=== PATIENT | female | born 1955 | race Caucasian/White ===

== ENCOUNTER 2018-12-11 16:03 | Inpatient (IN) | payer OTHER ==
[~2018-12-11] VITALS: Ht 152.4 cm; Wt 68.0 kg
[2018-12-11 16:30] VITALS: BP 118/79
[2018-12-11 17:17] LABS: URINE BILIRUBIN NEGATIVE (Negative); URINE BLOOD 1+ (Negative); URINE CLARITY CLEAR; URINE COLOR YELLOW; URINE GLUCOSE-RANDOM 3+ (Negative); URINE KETONES 1+ (Negative); URINE LEUKOCYTES-REFLEX 1+ (Negative); URINE NITRITE-REFLEX NEGATIVE (Negative); URINE PROTEIN 1+ (Negative); URINE UROBILINOGEN 0.2 E.U./dl (0.2-1.0)
[2018-12-11 17:24] LABS: BACTERIA-REFLEX >30 Many /HPF (None Seen); SQUAMOUS >10 Many /LPF (0-3)
[2018-12-11 17:25] LABS: CASTS None Seen /LPF (None Seen); CRYSTALS None Seen /LPF (None Seen); MUCUS None Seen strn/LPF (None Seen); URINE RBC 0-2 Rare /HPF (0-2)
[2018-12-11 17:41] LABS: ABSOLUTE BASOPHILS 0.1 thou/uL (0.0-0.2); ABSOLUTE EOSINOPHILS 0.1 thou/uL (0.0-0.7); ABSOLUTE LYMPHOCYTES 4.6 thou/uL (0.8-5.3); ABSOLUTE MONOCYTES 1.6 thou/uL (0.0-1.2); ABSOLUTE NEUTROPHILS 11.8 thou/uL (1.6-8.1); BASOPHILS 0.6 %; EOSINOPHILS 0.6 %; HEMATOCRIT 41.6 % (37.0-47.0); HEMOGLOBIN 14.9 gm/dL (12.0-15.0); LYMPHOCYTES 25.2 %; MCHC 35.8 g/dL (28.0-37.0); MCV 86.6 fL (80.0-100.0); MONOCYTES 8.7 %; MPV 7.7 fl. (7.2-11.1); NUCLEATED RBCS 0 /100WBC; PLATELET COUNT* 353 thou/uL (150-400); POLYS 64.9 %; WBC 18.2 thou/uL (4.0-11.0)
[2018-12-11 17:54] LABS: ALBUMIN 3.6 g/dL (3.4-5.0); TOTAL BILIRUBIN 0.8 mg/dL (<0.1-1.0); TOTAL PROTEIN 7.7 g/dL (6.4-8.2)
[2018-12-11 21:10] VITALS: BP 141/75
[2018-12-11 22:00] VITALS: BP 99/62
[2018-12-11 22:26] LABS: ANION GAP 17 mmol/L (7-16); BUN 36 mg/dL (7-18); CALCIUM 9.3 mg/dL (8.5-10.1); CHLORIDE 92 mmol/L (98-107); CO2 21 mmol/L (21-32); CREATININE 0.9 mg/dL (0.6-1.3); POTASSIUM 3.4 mmol/L (3.5-5.1); SODIUM 130 mmol/L (136-145)
[2018-12-11 22:28] LABS: GLUCOSE 545 mg/dL (70-99)
[2018-12-11 22:32] LABS: TROPONIN-I LEVEL <0.06 ng/mL (<0.06)
[2018-12-12] VITALS (7 sets, daily range): BP systolic 106–122; BP diastolic 55–65
[2018-12-12] MEDS ORDERED: HUMALOG100 UNIT/1 SUBQ (02:39)
[2018-12-12] MEDS ORDERED: LANTUS100 UNIT/M SUBQ (02:41)
[2018-12-12] MEDS ORDERED: PRAVACHOL20 MG PO (02:42)
[2018-12-12] MEDS ORDERED: SPIRONOLACTONE25 M1 PO (02:43)
[2018-12-12] MEDS ORDERED: TRULICITY1.5 MG/0.5 SUBQ (02:49)
[2018-12-12] MEDS ORDERED: EFFEXOR XR37.5 MG PO (02:50)
[2018-12-12] MEDS ORDERED: XANAX 0.25 MG0.25 MG PO (07:02)
[2018-12-12 09:29] LABS: APTT 25.8 Seconds (25.0-31.3)
[2018-12-12 12:26] LABS: CSF GLUCOSE 253 mg/dl (40-70); CSF PROTEIN 237.9 mg/dl (15-45)
--- NOTE | 2018-12-12 12:33 | EKG ---
[place] [address] ELECTROCARDIOGRAM REPORT Name: DYADAY HILLS Room: [address] ADM IN .R.#: [id number] Admission: 12/11/18 Attend Phys: James Lawson Discharge: Date of : 59 Report #: [id number] THIS REPORT FOR: //name// [facility] Test Date: 2018-12-12 Test Time: 08:05:36 Pat Name: DAYDAY HILLS Department: Room: [address] Gender: F Final Inspector Shuttle: : 1955 Requested By: Jose Edwards Order Number: [id number] Mercedes MD: Douglas Zimmerman Measurements Intervals [place] Rate: 99 P: 63 AR: 182 QRS: -4 QRSD: 82 T: 88 QT: 393 QTc: 505 Interpretive Statements Sinus rhythm Borderline T wave abnormalities Possible inferior scar Prolonged QT interval No previous ECG available for comparison Electronically Signed On 12-12-2018 12:33:34 CDT by Douglas Zimmerman [email or web address] <ELECTRONICALLY SIGNED> By: Douglas Zimmerman MD, MERGED WITH [facility] 12/12/18 1233 [id number] Douglas Zimmerman MD, FAC /EPI
[2018-12-12 13:08] LABS: CSF CLARITY CLEAR; CSF COLOR COLORLESS; CSF RBC 5 /mm3; CSF WBC 1 /mm3 (0-10); VOLUME 11 ml
[2018-12-12 14:00] LABS: CALCIUM 9.4 mg/dL (8.5-10.1); CREATININE 0.8 mg/dL (0.6-1.3); MAGNESIUM 2.6 mg/dL (1.8-2.4); POTASSIUM 3.9 mmol/L (3.5-5.1)
[2018-12-13 00:08] VITALS: BP 118/52
[2018-12-13 04:00] VITALS: BP 126/66
[2018-12-13 08:00] VITALS: BP 127/71
[2018-12-13 11:06] LABS: CSF LDH 23 IU/L (())
[2018-12-13 15:54] VITALS: BP 110/59
[2018-12-13 20:00] VITALS: BP 123/66
[2018-12-14] VITALS: BP 121/68
[2018-12-14 08:00] VITALS: BP 133/73
[2018-12-14 10:37] VITALS: BP 133/73
[2018-12-14] MEDS ORDERED: FIBERCON625 M1 PO (10:56)
[2018-12-14 12:00] VITALS: BP 117/67; BP 141/69
[2018-12-14 14:07] LABS: CSF CHLORIDE 122 mmol/L (120-132); CSF TOTAL PROTEIN 210.6 mg/dL (0.0-44.0)
[2018-12-14 19:35] VITALS: BP 123/70
[2018-12-15 04:00] VITALS: BP 129/71
[2018-12-15 08:00] VITALS: BP 111/62
[2018-12-15 14:09] LABS: CSF VDRL Non Reactive (Non Rea:<1:1)
[2018-12-15] MEDS ORDERED: ENOXAPARIN40 MG/0.1 SUBQ (15:06)
[2018-12-15] MEDS ORDERED: CEFPODOXIME PR200 M1 PO (15:22)
[2018-12-15 15:27] VITALS: BP 133/73
[2018-12-15 16:00] VITALS: BP 111/66
[2018-12-15 16:59] VITALS: BP 133/73
[2018-12-15] MEDS ORDERED: CYMBALTA30 MG PO (17:51)
[2018-12-15] MEDS ORDERED: NEURONTIN 300300 M1 PO (17:54)
[2018-12-15 19:45] VITALS: BP 155/76
[2018-12-16 04:00] VITALS: BP 151/72
[2018-12-16 07:30] VITALS: BP 127/64
[2018-12-16] MEDS ORDERED: CYMBALTA30 MG PO (11:30)
[2018-12-16] MEDS ORDERED: LEVAQUIN 500 M500 M2 PO (11:30)
[2018-12-16] MEDS ORDERED: HUMALOG100 UNIT/1 SUBQ (11:30)
[2018-12-16] MEDS ORDERED: OXYCODONE HCL 55 MG PO (11:30)
[2018-12-16] MEDS ORDERED: COLACE 100 MG100 MG PO (11:30)
[2018-12-16 13:59] VITALS: BP 133/73
[2018-12-17 13:07] LABS: CSF ALBUMIN 160 mg/dL (11-48); CSF IGG INDEX 0.7 (0.0-0.7); CSF IgG 19.4 mg/dL (0.0-8.6); CSF/SERUM ALBUMIN INDEX 42 (0-8)
[2018-12-17 15:10] LABS: CSF ALBUMIN 58.3 % (56.8-76.4); CSF ALPHA 1 5.3 % (1.1-6.6); CSF ALPHA 2 10.7 % (3.0-12.6); CSF BETA 16.6 % (7.3-17.9); CSF GAMMA 7.7 % (3.0-13.0); CSF PRE-ALBUMIN 1.5 % (2.2-7.1)
== END 2018-12-16 16:48 | DRG 74 ==
LOC: M.ERS 16:03 → M.TBA-ER 18:39 → M.2W 18:39
PROVIDERS: Personal Emergency Response Attendant; ADMIT Internal Medicine
DX: G61.81 Chronic inflammatory demyelinating polyneuritis (principal); N39.0 Urinary tract infection, site not specified; E87.1 Hypo-osmolality and hyponatremia; M79.7 Fibromyalgia; I45.81 Long QT syndrome; E87.6 Hypokalemia; E11.9 Type 2 diabetes mellitus without complications; Z88.8 Allergy status to other drugs, medicaments and biological substances; Z91.048 Other nonmedicinal substance allergy status; Z79.84 Long term (current) use of oral hypoglycemic drugs

== ENCOUNTER 2018-12-15 15:07 | Inpatient (IN) | payer OTHER ==
[~2018-12-15] VITALS: Ht 154.9 cm; Wt 72.3 kg
[~2018-12-15 15:07] MED LIST: EFFEXOR XR37.5 MG PO; ENOXAPARIN40 MG/0.1 SUBQ; FIBERCON625 M1 PO; HUMALOG100 UNIT/1 SUBQ; LANTUS100 UNIT/M SUBQ; PRAVACHOL20 MG PO; SPIRONOLACTONE25 M1 PO; TRULICITY1.5 MG/0.5 SUBQ; XANAX 0.25 MG0.25 MG PO
[2018-12-15] MEDS ORDERED: CEFPODOXIME PR200 M1 PO (15:22)
[2018-12-15] MEDS ORDERED: CYMBALTA30 MG PO (17:51)
[2018-12-15] MEDS ORDERED: NEURONTIN 300300 M1 PO (17:54)
[2018-12-16] MEDS ORDERED: COLACE 100 MG100 MG PO (11:30)
[2018-12-16] MEDS ORDERED: HUMALOG100 UNIT/1 SUBQ (11:30)
[2018-12-16] MEDS ORDERED: CYMBALTA30 MG PO (11:30)
[2018-12-16] MEDS ORDERED: LEVAQUIN 500 M500 M2 PO (11:30)
[2018-12-16] MEDS ORDERED: OXYCODONE HCL 55 MG PO (11:30)
--- NOTE | 2018-12-16 17:43 | NUR ---
ASSUMMED CARE UPON ADMISSION, PT ALERT AND ORIENTED, PT ORIENTED TO REHAB ROUTINE, ASSESSMENT COMPLETE, WILL CONTINUE TO MONITOR.
[2018-12-16 18:33] LABS: HEMATOCRIT 40.5 % (37.0-47.0); HEMOGLOBIN 14.2 gm/dL (12.0-15.0); MCH 30.6 pg (26.0-34.0); MCV 87.5 fL (80.0-100.0); MPV 7.5 fl. (7.2-11.1); RBC 4.63 mil/uL (4.20-5.00); RDW-CV 13.3 % (10.5-14.5); WBC 11.6 thou/uL (4.0-11.0)
[2018-12-16 18:43] LABS: CALCIUM 9.4 mg/dL (8.5-10.1); CREATININE 0.7 mg/dL (0.6-1.3); POTASSIUM 3.4 mmol/L (3.5-5.1)
[2018-12-16 19:10] VITALS: BP 127/61
--- NOTE | 2018-12-16 20:45 | NUR ---
SITTING UP IN RECLINER WATCHING TV. DENIES DISCOMFORT. CALL LIGHT WITHIN REACH. TOOK MEDICATIONS WHOLE WITH WATER.
[2018-12-17 03:22] LABS: URINE BILIRUBIN NEGATIVE (Negative); URINE BLOOD NEGATIVE (Negative); URINE CLARITY CLEAR; URINE COLOR YELLOW; URINE GLUCOSE-RANDOM TRACE (Negative); URINE KETONES NEGATIVE (Negative); URINE LEUKOCYTES-REFLEX NEGATIVE (Negative); URINE NITRITE-REFLEX NEGATIVE (Negative); URINE PROTEIN 1+ (Negative); URINE UROBILINOGEN 0.2 E.U./dl (0.2-1.0)
--- NOTE | 2018-12-17 05:41 | NUR ---
UP X ONE DURING THE NIGHT TO THE BEDSIDE COMMODE TO VOID. HOURLY ROUNDING IN PROGRESS.
[2018-12-17 07:15] VITALS: BP 96/58
--- NOTE | 2018-12-17 11:47 | NUR ---
Nutrition: Pt admitted to Rehab with [facility]. She stated she has been "sick" since September with nausea, wt loss, poor appetite. Loss of 110# in 1.5 yrs. She stated she feels like it is her mind, not her body, that is causing the loss of appetite. She has been drinking Ensure at home and agrees to them here as well. Albumin 3.6, BG 288. Wt: 150#. She also stated that the infusions are helping her appetite to increase again. She had questions over the CHO count on menus and ordering - all questions answered. She stated the food is good here and likes the option to order what she wants. She stated she is eating >50% of her meals now. Consider Mild risk at this time. RD will follow weekly for po intake, wt, labs.
--- NOTE | 2018-12-17 16:53 | NUR ---
SW met with pt to complete initial assessment, introduce self, and SW role on inpt rehab and to review team conference summary. Pt lives at home with her . Pt has a stair lift and a transport wheelchair and rolling walker. Pt has children and grandchildren who are her inspiration and motivation to meet goals on rehab. SW discussed reteam next Saturday to reassess pt length of stay. Pt in agreement with plan. SW to continue to follow to assist with safe dc planning.
--- NOTE | 2018-12-17 18:06 | NUR ---
ASSUMMED CARE OF PT AT 0730, PT ALERT AND ORIENTED, PT TRANSFERS SLOWLY WITH GB WALKER, NEEDS SLIGHT HELP FROM SIT TO STAND, TAKING FOOD AND FLUIDS WELL, PT BLOOD SUGARS ELEVATED THIS SHIFT, PT DOES HAVE INSULIN DELEVERY DEVICE (VGO) AND SHE GIVES HERSELF LISPRO INSULIN PER HER BLOOD SUGAR, PT CONCERNED SUGARS ELEVATED AND THINKING DEVICE NOT LOADED CORRECTLY,PT CHANGED DEVICE THIS PM AND DINNER BLOOD SUGAR IMPROVED, ADDITIONAL INSULIN GIVEN PER SLIDING SCALE PER NURSE DUE TO HIGH BLOOD SUGARS AT BREAKFAST AND LUNCH, PT REFUSED ADDITIONAL INSULIN AT DINNER, PT DID COMPLAIN OF LOW BACK PAIN X 1 THIS SHIFT, MEDICATED PER ORDER, PARTICIPATED IN ALL THERAPIES, HOURLY ROUNDING COMPLETED, ASSESSMENT COMPLETE, WILL CONTINUE TO MONITOR.
[2018-12-17 19:23] VITALS: BP 124/68
--- NOTE | 2018-12-18 05:03 | NUR ---
ASSUMED PT CARE AT 1930. PT ALERT AND ORIENTED X4, POLITE AND COOPERATIVE WITH CARES. PT SITTING UP IN RECLINER WATCHING TELEVISION AT SHIFT CHANGE. PT UP TO BEDSIDE COMMODE WITH GAIT BELT, WALKER AND MIN ASSIST TO STAND X3 TO VOID. PER PT HER INSULIN DELIVERY DEVICE IS WORKING WELL AFTER HAVING BEEN CHANGED OUT. PT DECLINED S/S INSULIN AT HS. PT SLEPT WELL OVERNIGHT. TYLENOL AND XANAX AT HS PER PT REQUEST. HOURLY ROUNDING IN PROGRESS, WILL CONTINUE TO MONITOR.
[2018-12-18 08:00] VITALS: BP 114/60
[2018-12-18 20:00] VITALS: BP 126/65
--- NOTE | 2018-12-19 05:07 | NUR ---
ASSUMED PT CARE AT 1930. PT ALERT AND ORIENTED X4, POLITE AND COOPERATIVE WITH CARES. PT SITTING UP IN RECLINER AT SHIFT CHANGE WATCHING TELEVISION. PT UP WITH ONE, MIN ASSIST, GAIT BELT AND WALKER TO BATHROOM X2 TO VOID. NEEDS EXTRA TIME. PT NEEDS ASSIST GETTING HER LEGS IN AND OUT OF BED. NO PAIN MEDICATIONS THIS SHIFT. PT HAS INSULIN DEVICE WHICH SHE OVERSEES, PT DECLINED S/S INSULIN. PT SLEPT WELL OVERNIGHT. CALL LIGHT AND FREQUENTLY USED ITEMS WITHIN REACH. HOURLY ROUNDING IN PROGRESS, WILL CONTINUE TO MONITOR.
[2018-12-19 07:30] VITALS: BP 130/64
--- NOTE | 2018-12-19 15:32 | NUR ---
PT HAS PARTICIPATED WITH THERAPIES AND IS ALERT AND OTIENTATED. PT AMBULATES WITH SLOW DELIBERATE GAIT WITH WALKER AND MIN ASSIST OF 1.PT CONTINENT OF BLADDER AND CALLS FOR ASSIST TO BATHROOM. PT HAS FAIR APPETITE AND HAS EATEN LUNCH IN DINNINGROOM.PT DENIES PAIN.
[2018-12-19 20:09] VITALS: BP 123/65
--- NOTE | 2018-12-20 00:34 | NUR ---
ASSUMED CARE AT 1930. PATIENT IN W/C FOR A WHILE IN DINING ROOM, WHEELED HER BACK TO HER ROOM. UP WITH SBA, GAIT BELT, WALKER. SLOW GAIT. NEEDS HELP WITH BOTH LEGS IN AND OUT OF BED. TAKES PILLS WHOLE WITH WATER. NO C/O PAIN. SHE DID NOT SELF ADMINISTER INSULIN FROM HER PUMP, I GAVE HOSPITAL INSULIN. SEE MAY. TURNS PER SELF. HOURLY ROUNDS CONTINUE. BED ALARM ON. CALL LITE IN REACH.
--- NOTE | 2018-12-20 05:48 | NUR ---
SLEPT MUCH OF THE NIGHT. VOIDED PER TOILET. NEEDS HELP GETTING BOTH LEGS INTO THE BED. NO C/O PAIN. HOURLY ROUNDS CONTINUE. BED ALARM ON. CALL LITE IN REACH.
[2018-12-20 07:49] VITALS: BP 107/56
[2018-12-20 19:40] VITALS: BP 148/64
--- NOTE | 2018-12-20 22:56 | NUR ---
ASSUMED CARE AT 1930. PATIENT RESTING IN BED. TAKES PILLS WHOLE WITH WATER. VOIDS PER TOILET AND DOES OWN CARES. USES GRABBER TO APPLY PULLUPS. TOOK MOM AT HS BECAUSE OF NO BM FOR A "COUPLE OF DAYS" AND WANTED PULLUPS IN CASE OF FECAL URGENCY. NEEDS HELP GETTING BOTH LEGS IN AND OUT OF BED, BUT ONCE STANDING CAN WALK SLOWLY AND DELIBERATELY WITH GAIT BELT AND WALKER. NO C/O PAIN, CAN TURN SELF USING ARMS AND SIDE RAILS. HOURLY ROUNDS CONTINUE. BED ALARM ON. CALL LITE IN REACH.
--- NOTE | 2018-12-21 05:08 | NUR ---
SLEPT MOST OF THE NIGHT. NO RESULTS FROM MOM. NO C/O PAIN. TURNS SELF. HOURLY ROUNDS CONTINUE. BED ALARM ON. CALL LITE IN REACH.
[2018-12-21 08:08] VITALS: BP 96/54
--- NOTE | 2018-12-21 17:07 | NUR ---
ASSUMMED CARE OF PT AT 0730, PT ALERT AND ORIENTED, TRANSFERS WITH SBA, GB WALKER, AMBULATED IN HALLWAY WITH SBA GB WALKER, GAIT SLOW BUT STEADY, PT DOES NEED OCCCASIONAL STEADYING WHEN ADJUSTING PANTS FOR TOILETING, PTY COMPLAINS OF CONSTIPATION, PT COMPLAINS OF RECTAL PRESSURE AND INABILITY TO EVACUATE BOWELS, FLEETS ENEMA GIVEN AND NURSE MANUALLY EXTRACTED A LARGE AMOUNT OF HARD STOOL, PT REQUESTING THAT ADDITIONAL MEDICATION BE ORDERED FOR HER BOWELS, INFORMED PT THAT WILL DISCUSS WITH PHYSICIAN WITH ROUNDS IN AM, DENIES PAIN, PT GIVE OWN LISPRO INSULIN VIA PUMP, PT UP IN CHAIR MOST OF SHIFT, DID BATH SITTING AT SINK, DRESSED WITH SBA AND SOME STEADYING, HOURLY ROUNDING COMPLETE, ASSESSMENT COMPLETE, WILL CONTINUE TO MONITOR.
[2018-12-21 20:00] VITALS: BP 116/68
--- NOTE | 2018-12-21 22:11 | NUR ---
ASSUMED CARE AT 1930. PATIENT RESTING IN BED. AT BEDSIDE. UP TO TOILET TO VOID. LATER VOIDING PER BSC THROUGH NIGHT. TRYING TO HELP MORE WITH CARES. WEARING BRIEF, INCONTINENT OF SMALL AMOUNT OF URINE, BUT CONTAINED IN PULLUP. SKIN CARE GIVEN. UP WITH GAIT BELT, WALKER, STEADYING ASSIST, AND CUEING ESPECIALLY WITH IV TUBING PLACEMENT. IVF INFUSING TO RT WRIST. PATIENT VERY ANXIOUS ABOUT THIS IV, REASSURANCE GIVEN. DRESSING TO PEG C/D/I. PEG FLUSHES WELL, MEDS GIVEN PER PEG. ABD BINDER OVER PEG AND TUBING, PATIENT STATES "IT HELPS" SHE STATES AREA IS TENDER. ASSISTED WITH TURNS. NO C/O PAIN. HOURLY ROUNDS CONTINUE. BED ALARM ON. CALL LITE IN REACH.
--- NOTE | 2018-12-22 06:08 | NUR ---
SLEPT FROM 2300 TO 0555. TURNS SELF. VOIDED PER TOILET. NEEDS HELP WITH BOTH LEGS IN AND OUT OF BED. SLOW DELIBERATE STEPS WITH GAIT BELT, WALKER. NO C/O PAIN. HOURLY ROUNDS CONTINUE. BED ALARM ON. CALL LITE IN REACH.
[2018-12-22 07:46] VITALS: BP 81/49
--- NOTE | 2018-12-22 15:30 | NUR ---
ASSUMED CARE AT 0730. ALERT ORIENTED PLEASANT COOPERATIVE. HX OF JONNY CALLAWAY DX. TRANSFERS WITH SBA G BELT WALKER AND AMBULATES WITH SLOW GAIT. DENIES PAIN OR CONCERNS. PARTICIPATING IN THERAPIES THROUGHOUT THE DAY. PT. HAS AN INSULIN PUMP WHICH SHE REGULATES ACCORDING TO HER BLOOD SUGARS. FEEDS SELF AND TAKES MEDS WITHOUT DIFFICULTY. USES CALL LIGHT APPROPRIATELY FOR ASSIST. PROPELLS SELF IN W/C IN HER ROOM.
[2018-12-22 20:00] VITALS: BP 143/71
--- NOTE | 2018-12-23 05:20 | NUR ---
ASSUMED CARES AT 1920. ALERT AND ORIENTED. PLEASANT. DENIED ANY PAIN. C/O ITCHY BACK. DENIED ANY NEED FOR BENADRYL. SAYS HAS HAD THIS IN THE PAST. HAS INSULIN PUMP TO LLQ ABD. SELF ADMINISTERS OWN INSULIN DOSE. MIN ASSIST WITH GAIT BELT AND WALKER. UP TO BATHROOM X 3. DOES OWN CARES. SAYS THAT FEELS LIKE NEEDS TO HAVE BM BUT CAN'T. WEARING PULLUPS IN CASE OF STOOL ACCIDENT. PT SLEPT MOST OF THE NIGHT. CALL LIGHT IN REACH AND BED ALARM ON.
[2018-12-23 07:25] VITALS: BP 108/59
[2018-12-23 20:00] VITALS: BP 143/71
--- NOTE | 2018-12-24 05:07 | NUR ---
ASSUMED CARES AT 1920. ALERT AND ORIENTED. PLEASANT. DENIED ANY PAIN. C/O ITCHY BACK. LOTIONED BACK AND PRN BENADRYL ORDER OBTAINED. MIN ASSIST WITH GAIT BELT AND WALKER. UP TO BATHROOM X 3. SLEPT WELL AFTER MIDNIGHT. CALL LIGHT IN REACH AND BED ALARM ON.
[2018-12-24 07:54] VITALS: BP 123/63
--- NOTE | 2018-12-24 12:47 | NUR ---
JOSUE and Dr Gould met with pt to review team conference summary and plan for pt to remain on rehab unit one more week with team to reteam and possible for pt to dc after team conference Sunday 12/31. Pt was okay with plan but also wanted to make sure that she really would be ready in a week to dc home safely. SW to continue to follow to assist with safe dc planning.
--- NOTE | 2018-12-24 15:03 | NUR ---
AM ASSESSMENT AND VITAL SIGNS COMPLETED DOCUMENTED. PT HAS BEEN PLEASANT AND COOPERATIVE, WORKS HARD WITH ALL THERAPIES TO CONTINUE TO PROGRESS TOWARD DISCHARGE GOALS. PRN TYLENOL GIVEN FOR C/O BACK PAIN. PT IS AMBULATORY WITH A WALKER AND STAFF PRESENT. FALL PRECAUTIONS AND HOURLY ROUNDING CONTINUE.
[2018-12-24 20:00] VITALS: BP 137/68
[2018-12-25 04:12] LABS: HEMATOCRIT 33.7 % (37.0-47.0); HEMOGLOBIN 11.9 gm/dL (12.0-15.0); MCH 31.1 pg (26.0-34.0); MCHC 35.1 g/dL (28.0-37.0); MCV 88.7 fL (80.0-100.0); MPV 7.4 fl. (7.2-11.1); RBC 3.8 mil/uL (4.20-5.00); RDW-CV 14.1 % (10.5-14.5); WBC 15.8 thou/uL (4.0-11.0)
[2018-12-25 04:25] LABS: ALBUMIN 2.6 g/dL (3.4-5.0); CREATININE 0.5 mg/dL (0.6-1.3); POTASSIUM 3.3 mmol/L (3.5-5.1); TOTAL BILIRUBIN 0.5 mg/dL (<0.1-1.0); TOTAL PROTEIN 6.6 g/dL (6.4-8.2)
--- NOTE | 2018-12-25 06:30 | NUR ---
ASSUMED CARES AT 1920. ALERT AND ORIENTED. PLEASANT. DENIED ANY PAIN. PT CONTINUES WITH CONCERN OF BM. DISCUSSED OPTION OF SUPPOSITORY. PT OPEN TO TAKING BUT WANTS THIS DONE IN AM. MOD ASSIST WITH GAIT BELT AND WALKER. STILL WANTS ASSIST WITH BOTH LEGS INTO BED. UP TO BATHROOM. DOES OWN CARES. THIS AM BLOOD SUGAR AND K+ LOW. JUICE AND CRACKERS GIVEN AND K+ REPLACEMENT PROTOCOL INITIATED. PT SLEPT WELL OTHERWISE. CALL LIGHT IN REACH. BED ALARM ON.
[2018-12-25 07:38] VITALS: BP 95/52
--- NOTE | 2018-12-25 18:26 | NUR ---
PT HAS PARTICIPATED WITH THERAPIES AND CALLS FOR ASSIST NEEDED. PT AMBULATES WITH WALKER AND SBA WITH GAITBELT ON. PRN FOR BACK PAIN GIVEN THIS AFTERNOON WITH GOOD EFFECT. PT ASSISTED WITH MANUAL REMOVAL OF LARGE FORMED STOOL THIS AFTERNOON AFTER RECEIVING SUPPOSITORY,PT FEELS BETTER. PT REPORTS FEELING STOOL IN COLON BUT NOT BEING ABLE TO PUSH IT OUT ON OWN.PT REMAINS ALERT AND ORIENTATED.
[2018-12-25 19:51] VITALS: BP 102/57
--- NOTE | 2018-12-26 00:52 | NUR ---
ASSUMED CARE AT 1930. PATIENT SAT IN W/C UNTIL AROUND 2044. UP WITH SBA, GAIT BELT, WALKER. NEEDS HELP WITH GETTING BOTH LEGS INTO BED. MANAGES OWN INSULIN PUMP. DID NOT GIVE HERSELF ANY UNITS AT HS. UP JUST BEFORE MIDNIGHT, BLOOD SUGAR CHECKED, WAS 66. GIVEN 14 G CARBS IN APPLE JUICE, AND 22 G CARBS IN TWO PACKAGES OF RENU CRACKERS FOR A TOTAL OF 36 G CARBS. RETURNED TO SLEEP. NO C/O PAIN. HOURLY ROUNDS CONTINUE. BED ALARM ON. CALL LITE IN REACH.
--- NOTE | 2018-12-26 02:38 | NUR ---
USED CALL LITE TO ASK TO VOID. WHEN NURSE ARRIVED PATIENT THOUGHT SHE HAD ALREADY CALLED, BUT HAD NOT. THEN PATIENT ATTEMPTED TO RISE FROM SITTING POSIITON AND WALK TO TOILET. TOOK ABOUT TWO STEPS AND WAS UNSTEADY ENOUGH THAT THIS NURSE HAD HER GET BACK ON BED. BSC OBTAINED AND SHE USED THIS AT BEDSIDE WITH STAND PIVOT. PATIENT BLOOD SUGAR WAS 70 DESPITE EARLIER CARB INTAKE. AFTER FINISHING VOIDING/HYGIENE, GIVEN ONE ORANGE SHERBET AND APPLE JUICE WITH TWO PACKETS OF SUGAR IN AND SHE CONSUMED THEM. AFTER BEING UP A FEW MINUTES MENTATION CLEARED BUT SHE WAS STILL WEAK. CALL LITE IN REACH. BED ALARM ON. HOURLY ROUNDS CONTINUE.
--- NOTE | 2018-12-26 03:15 | NUR ---
LAB AWOKE PATIENT. PATIENT WAS STILL VERY SLEEPY, BUT AROUSABLE. BLOOD SUGAR RECHECKED (ONE HOUR AFTER CONSUMING LAST CARBS) AND WAS 145. ONCE AWAKE, SHE WAS MORE ALERT AND JOKING WITH STAFF.
--- NOTE | 2018-12-26 05:13 | NUR ---
SLEEPING SINCE LAB AWAKENED HER. TURNS SELF. NO C/O PAIN. HOURLY ROUNDS CONTINUE. BED ALARM ON. CALL LITE IN REACH.
[2018-12-26 08:59] VITALS: BP 98/59
--- NOTE | 2018-12-26 18:30 | NUR ---
AM ASSESSMENT AND VITAL SIGNS COMPLETED DOCUMENTED. PT HAS BEEN PLEASANT AND COOPERATIVE, WORKS WITH THERAPIES AND CONTINUES TO PROGRESS TOWARD DISCHARGE GOALS. PT IS STAND BY ASSIST/ SUPERVISION FOR MOST TASKS. FALL PRECAUTIONS AND HOURLY ROUNDING CONTINUE.
[2018-12-26 19:30] VITALS: BP 104/60
--- NOTE | 2018-12-26 21:22 | NUR ---
INITAL ASSESMENT COMPLETED AT 1930. PT PLEASANT AND COOPERATIVE, DENIED PAIN OR DISCOMFORT AT THATR TIME. HS MEDS DISPENSED ORDERED PER EMAR. CALL LIGHT IN REACH, PT DEMONSTRATES PROPER USE.
[2018-12-27 08:00] VITALS: BP 120/63
--- NOTE | 2018-12-27 16:13 | NUR ---
ASSUMED CARE AT 0730. ALERT ORIENTED PLEASANT COOPERATIVE. HX OF JONNY CALLAWAY. TRANSFERS WITH SBA G BELT WALKER AMBULATES TO BR TO VOID ABLE TO DO HYGEINE AND CLOTHING ADJUSTMENTS. USES CALL LIGHT APPROPRIATELY FOR ASSISTANCE. PARTICIPATING IN THERAPIES THROUGHOUT THE DAY. DENIES PAIN OR CONCERNS. HAS INSULIN PUMP WHICH SHE REGULATES ACCORDING TO WHAT BLOOD SUGARS ARE. APPETITE GOOD AND TAKES MEDS WITHOUT DIFFICULTY. NEEDS ASSIST TO GET LEGS INTO BED. HAS HAD SEVERAL VISITORS TODAY.
[2018-12-27 19:52] VITALS: BP 130/69
--- NOTE | 2018-12-28 00:35 | NUR ---
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
--- NOTE | 2018-12-28 05:25 | NUR ---
SLEEPING SINCE 2199.TOOK 2 PACKAGES RENU CRACKERS W/ H20 HS SNACKS.BRP W/ SBA X1.SLEPT GOOD ALL NIGHT.NEEDS ASSIST LIFTING LE'S OUT & INTO BED.
[2018-12-28 08:14] VITALS: BP 109/58
--- NOTE | 2018-12-28 16:46 | NUR ---
ASSUMED CARE AT 0730. ALERT ORIENTED PLEASANT COOPERATIVE. HX OF S/P JONNY CALLAWAY. TRANSFERS WITH SBA G BELT WALKER AND AMBULATES TO BR TO VOID ABLE TO DO HYGEINE AND CLOTHING ADJUSTMENTS. DID SPONGE BATH INDEPENDENTLY DRESSED WITHOUT DIFFICULTY. NO C/O PAIN HAS HAD MULTIVISITORS TODAY. DR. BORGES ROUNDED DISCUSSED ACCUCHECKS LAST 24-48 HRS. LANTUS AMT DECREASED. HAS BEEN UP MOST OF THE DAY. HERE VISITING ALSO. APPETITE GOOD FEEDS SELF TAKES MEDS WITHOUT DIFFICULTY.
[2018-12-28 19:00] VITALS: BP 130/62
--- NOTE | 2018-12-29 01:05 | NUR ---
ASSUMED CARE @ 1934-12/18-SATURDAY.AWAKE IN BED WATCHING TV.BED ALARM PUT ON @ 1934.PRN XANAX 0.25 MG & PRN AMBIEN 5 MG ORAL BOTH GIVEN @ 2018-PER PATIENT'S REQUEST.WANTS ALL LIGHTS OFF,SIDERAILS X2 UP & DOOR CLOSED @ NIGHT.CALLED @ 2329 FOR C/O OF NERVES ON BACK RESTLESS.REQUESTED BACK RUB & @ SAME TIME SCRATCH HER BACK.BOTH DONE @ 2329.APPEARS SLEEPING @ -12/29-SATURDAY.SEE PAIN MANAGEMENT @ 0101.ASSIST IN LIFTING BOTH LE'S OUT & INTO BED.HAS GEN. 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
--- NOTE | 2018-12-29 05:14 | NUR ---
SLEPT LATE SINCE -12/29-SATURDAY & SLEPT CONTINOUSLY SINCE 0000.BRP W/ SBA X 2.TOOK ALL ORANGE SHERBET HS SNACK.
[2018-12-29 08:19] VITALS: BP 102/56
--- NOTE | 2018-12-29 14:28 | NUR ---
ASSUMED CARE AT 0730. ALERT ORIENTED PLEASANT COOPERATIVE. HX OF ROBELIGENO BARRE TRANSFERS WITH SBA G BELT WALKER AND AMBULATES WITH SLOW STEADY GAIT TO BR ABLE TO DO HYGEINE AND CLOTHING ADJUSTMENTS. DENIES PAIN PARTICIPATING IN THERAPIES. FEEDS SELF TAKES MEDS WITHOUT DIFFICULTY. USES CALL LIGHT APPROPRIATELY FOR ASSIST.
[2018-12-29 20:26] VITALS: BP 124/71
--- NOTE | 2018-12-29 23:12 | NUR ---
ASSUMED CARE AT 1930. PATIENT ASSISTED TO BED, SBA, GAIT BELT, WALKER. VOIDS PER TOILET. DOES OWN CARES. APPLIED LOTION TO UPPER BACK. UP WITH SBA, GAIT BELT, WALKER. NEEDS HELP GETTING BOTH LEG IN/OUT OF BED. NEEDS A LITTLE HELP MOVING RIGHT LEG LATERALLY TO POSITION SELF IN MIDDLE OF BED. BLOOD SUGAR 110, NO INSULIN TAKEN BY PATIENT. ATE ORANGE SHERBET AND RENU CRACKERS FOR HS SNACK. NO C/O PAIN. TURNS SELF. HOURLY ROUNDS CONTINUE. BED ALARM ON. CALL LITE IN REACH.
--- NOTE | 2018-12-30 05:32 | NUR ---
APPEARS TO BE RESTING WITH EYES CLOSED ON HOURLY ROUNDS. MEDICATED ONCE FOR PAIN. VOIDS PER TOILET. UP WITH GAIT BELT, WALKER. DOES OWN CARES. HOURLY ROUNDS CONTINUE. BED ALARM ON. CALL LITE IN REACH.
[2018-12-30 08:22] VITALS: BP 113/56
[2018-12-30 19:30] VITALS: BP 95/56
--- NOTE | 2018-12-30 20:20 | NUR ---
RESTING QUIETLY IN BED AND WATCHING TV. CALL LIGHT WITHIN REACH. IN GOOD SPIRITS - SMILING. PATIENT STATES SHE IS GETTING STRONGER. TOOK MEDICATIONS WHOLE WITH WATER. SLIGHT TREMORS NOTED IN HANDS. DENIES DISCOMFORT.
--- NOTE | 2018-12-31 05:26 | NUR ---
RESTED QUIETLY. UP X ONE DURING THE NIGHT TO THE BATHROOM TO VOID. PAIN MED GIVEN FOR COMPLAINT OF HEADACHE WITH RELIEF. HOURLY ROUNDING IN PROGRESS.
[2018-12-31 07:55] VITALS: BP 119/58
--- NOTE | 2018-12-31 16:51 | NUR ---
SW and Dr Gould met with pt to review team conference summary and plan for pt to dc home with tomorrow and for to attend family training; pt said pt would inform and scheduled family training for 1 pm tomorrow. Pt has RW, BSC, stair lift, transport wc. Pt preference for OP therapy at [facility] in [place]. Pt emotional about dc but pt explained that she felt she was anxious because of how she was not functional at home prior to hospitalization and inpt rehab, now she feels she is ready, just hopeful she really will do well at home. Pt said she is very thankful for inpt rehab nurses and therapists. Team discussed pt to be mod I in room today. SW to continue to follow and assist with finalization of dc plan for home tomorrow with and OP therapy services to follow.
[2018-12-31 20:00] VITALS: BP 145/70
--- NOTE | 2018-12-31 22:56 | NUR ---
ASSUMED CARE AT 1930. MOD I IN ROOM. RESTED IN RECLINER UNTIL AROUND 2029. WAS DISCUSSING WHERE TO TAKE OUT PATIENT THERAPY WITH HER NIECE WHO IS ALSO A TERMINAL SUPERVISOR. SISTER AND HERE VISITING FOR A WHILE. TAKES PILLS WHOLE WITH WATER. BLOOD SUGAR 281 AT HS. TOOK ONE CLICK. REFUSED HS SNACK STATING SHE FELT FULL. HAS GOLDFISH CRACKERS AT BEDSIDE. WANTS TO CALL US TO WALK WITH HER TO TOILET DURING THE NIGHT BECAUSE SHE NEEDS A FEW STEPS TO BECOME STEADY AT NIGHT. DENIES PAIN. CALL LITE IN REACH. HAPPY TO BE GOING HOME TOMORROW. HOURLY ROUNDS CONTINUE.
--- NOTE | 2019-01-01 05:15 | NUR ---
HAS BEEN MOD I THROUGH SHIFT, BUT STILL WANTS NURSING TO ACCOMPANY HER TO TOILET. NO C/O PAIN. TURNS SELF. STILL NEEDS A LITTLE HELP GETTING LEGS INTO BED. HOURLY ROUNDS CONTINUE. CALL LITE IN REACH.
[2019-01-01 08:00] VITALS: BP 106/59
[2019-01-01 13:19] VITALS: BP 106/59
--- NOTE | 2019-01-01 13:20 | NUR ---
Pt to dc home with today. Pt completing family training. OP therapy services to follow and pt preference is now for [facility] as she said that she is aware that she will be able to have more specific therapy related to neurological diagnosis. JOSUE faxed referral and order to [facility] [phone] and fax [phone]. Pt has needed DME at home already. Pt to provide pt ride home.
--- NOTE | 2019-01-01 14:24 | NUR ---
AM ASSESSMENT AND VITAL SIGNS COMPLETED DOCUMENTED. PT COMPLETED HER THERAPY SESSIONS AND HAS MET HER DISCHARGE GOALS. PT AND BELONGINGS TRANSPORTED TO EXIT, DISCHARGED HOME IN STABLE CONDITION.
== END 2019-01-01 14:37 | disposition home or self-care (01) | DRG 74 ==
LOC: M.REH 15:07
PROVIDERS: ADMIT Physical Medicine & Rehabilitation
DX: G61.81 Chronic inflammatory demyelinating polyneuritis (principal); A69.20 Lyme disease, unspecified; N39.0 Urinary tract infection, site not specified; G61.0 Guillain-Barre syndrome; I10 Essential (primary) hypertension; E11.40 Type 2 diabetes mellitus with diabetic neuropathy, unspecified; M79.7 Fibromyalgia; K59.00 Constipation, unspecified; E87.6 Hypokalemia; E11.649 Type 2 diabetes mellitus with hypoglycemia without coma; G60.3 Idiopathic progressive neuropathy; Z88.8 Allergy status to other drugs, medicaments and biological substances; Z91.048 Other nonmedicinal substance allergy status; Z79.899 Other long term (current) drug therapy; Z79.4 Long term (current) use of insulin

== ENCOUNTER 2019-01-29 19:47 | Inpatient (IN) | payer OTHER ==
[~2019-01-29] VITALS: Ht 154.9 cm; Wt 73.5 kg
--- NOTE | ~2019-01-29 | PROC ---
[address] [address] PROCEDURE REPORT Name: DAYDAY HILLS Room: [address] IN ..#: [id number] Admission: 01/29/19 Attend Phys: Jan Wisdom MD Discharge: Date of : 59 Report #: [id number] THIS REPORT FOR: //name// For GI report, please see the Provation report in [facility] content. By: [id number] Records Staff DANIA /FABBY
[~2019-01-29 19:47] MED LIST changes: +CEFPODOXIME PR200 M1 PO; +COLACE 100 MG100 MG PO; +CYMBALTA30 MG PO; +LEVAQUIN 500 M500 M2 PO; +NEURONTIN 300300 M1 PO; +OXYCODONE HCL 55 MG PO
[2019-01-29 19:58] VITALS: BP 133/54
[2019-01-29 20:00] VITALS: BP 108/58
[2019-01-29] MEDS ORDERED: MELATONIN5 MG SUBLING (20:03)
[2019-01-29] MEDS ORDERED: VITAMIN D31000 UNIT PO (20:03)
[2019-01-29 20:11] LABS: HEMATOCRIT 42.7 % (37.0-47.0); HEMOGLOBIN 15.2 gm/dL (12.0-15.0); MCH 31.9 pg (26.0-34.0); MCHC 35.6 g/dL (28.0-37.0); MCV 89.7 fL (80.0-100.0); MPV 7.9 fl. (7.2-11.1); NUCLEATED RBCS 0 /100WBC; PLATELET COUNT* 365 thou/uL (150-400); RBC 4.77 mil/uL (4.20-5.00); RDW-CV 13.4 % (10.5-14.5); WBC 24.4 thou/uL (4.0-11.0)
[2019-01-29 20:17] LABS: CALCIUM 9.9 mg/dL (8.5-10.1); CREATININE 1.2 mg/dL (0.6-1.3)
[2019-01-29 20:21] LABS: ALBUMIN 3.4 g/dL (3.4-5.0); TOTAL PROTEIN 7.9 g/dL (6.4-8.2)
[2019-01-29 20:23] LABS: POTASSIUM 2.4 mmol/L (3.5-5.1)
[2019-01-29 20:27] LABS: URINE BILIRUBIN NEGATIVE (Negative); URINE BLOOD 3+ (Negative); URINE CLARITY CLOUDY; URINE COLOR YELLOW; URINE GLUCOSE-RANDOM 1+ (Negative); URINE KETONES 1+ (Negative); URINE LEUKOCYTES-REFLEX 1+ (Negative); URINE NITRITE-REFLEX NEGATIVE (Negative); URINE PROTEIN 2+ (Negative); URINE SPECIFIC GRAVITY >= 1.030 (1.005-1.030); URINE UROBILINOGEN 0.2 E.U./dl (0.2-1.0)
[2019-01-29 20:35] LABS: BACTERIA-REFLEX >30 Many /HPF (None Seen)
[2019-01-29 20:36] LABS: URINE RBC 3-10 Few /HPF (0-2); URINE WBC-REFLEX >25 Many /HPF (0-5); WBC CLUMPS Few (None Seen)
[2019-01-29 20:37] LABS: MUCUS None Seen strn/LPF (None Seen); SQUAMOUS 0-3 Few /LPF (0-3)
[2019-01-29 20:39] LABS: CASTS None Seen /LPF (None Seen); CRYSTALS None Seen /LPF (None Seen)
[2019-01-29 21:03] LABS: ABSOLUTE LYMPHOCYTES 3.2 thou/uL (0.8-5.3); ABSOLUTE MONOCYTES 0.5 thou/uL (0.0-1.2); ABSOLUTE NEUTROPHILS 20.7 thou/uL (1.6-8.1)
[2019-01-29 21:04] LABS: PLATELET ESTIMATE ADEQUATE
--- NOTE | 2019-01-29 22:17 | NUR ---
REPORT GIVEN TO SAMM ZARCO. PT BEING ADMITTED TO TELEMETRY FLOOR.
[2019-01-29 22:27] VITALS: BP 140/63
[2019-01-29 23:00] VITALS: BP 108/58
[2019-01-30 04:00] VITALS: BP 99/50
--- NOTE | 2019-01-30 05:57 | NUR ---
PT RECIEVED FROM ED IN 222. ALERT AND ORIENTED X4. SAT MAINTAINED IN RA. CALL LIGHT WITHIN REACH AND BED IN LOW POSITION. DENIES PAIN AND SOA. HAD SEVERAL LOOSE BOWEL MOVEMENTS. PT IS INCONTINENT. PICTURES TAKEN OF WOUND AND PLACED IN CHART. HAS REDNESS ON HER BOTTOM AND PERIAREA, BARRIER CREAM APPLIED AND TURNED Q2 HOURS. HOURLY ROUNDING DONE FOR PT SAFETY.
[2019-01-30 08:00] VITALS: BP 100/62
--- NOTE | 2019-01-30 10:17 | NUR ---
gee completed initial assessment to [facility] d/c planning. pt lives at home w/spouse and has several pieces of DME; i.e. wlker, cane, commode, chair lift, stair lift, bed rail, grab bar, etc. pt stopped OP therapy at [facility] for the time being and begun HH w/[facility] last week. pt states her goal is to resume w/[facility] once she regains her strength. cm contact adriane Burroughs w/[facility], to inform them of pt admittance into the hospital. Order need to be faxed to [facility] @ d/c. gee to cont to follow.
[2019-01-30 11:35] VITALS: BP 103/52
--- NOTE | 2019-01-30 12:51 | NUR ---
Nutrition: Pt admitted with colitis. H/o GBS, Lymes. She has lost ~111# over 1.5 yrs d/t poor appetite. She feels she is still losing wt. Currently at 147#. Was 150# in Nov (1 month ago). CHO controlled diet. RX noted. Labs: BG 300s, albumin 3.4. She stated she has had diarrhea since yday. We discussed fiber options on her lunch tray today. She drinks Ensure MAX at home and would like one here as well. She also agreed to Ensure Pudding - RD will order these. She also has a pressure ulcer on bottom. Consider Mild risk. RD will follow closely wt changes, po intake, labs. F/u 02/06/19.
--- NOTE | 2019-01-30 13:22 | NUR ---
WOUND CARE NOTE: CONSULT RECEIVED FOR WOUND TO BUTTOCKS. PATIENT PRESENTS WITH 2 STAGE 2 PRESSURE ULCERS TO HER SACRUM AND A CANDIDIA RASH TO HER GROIN, LABIA, AND PERINEAL AREA. SACRUM: STAGE 2 PRESSURE ULCER MEASURING 0.7X0.2X0.1. MOIST, PINK, PALE WOUND BED. GALI-WOUND MACERATED. L. SIDE OF SACRUM: STAGE 2 PRESSURE ULCER MEASURING 0.3X0.4X0.1. MOIST, PINK WOUND BED. GALI-WOUND MACERATED. CLEANSED BOTH ULCERATIONS ON SACRUM WITH WATER, APPLIED OPTIFOAM AG AFTER APPLYING SKIN PREP. THEN SECURED WITH TEGADERM. GROIN, LABIA, AND PERINEAL AREA CLEANSED WITH WATER, APPLIED BARRIER OINTMENT WITH ANTIFUNGAL. PATIENT TOLERATED DRESSING CHANGES WELL. EDUCATED ON OFFLOADING AND DRESSING SELECTION, COMMUNICATED UNDERSTANDING. RECOMMEND NO BRIEFS IN BED-PATIENT ADMITS TO WEARING THESE AT HOME ENCOURAGE GOOD NUTRTION/HYDRATION TIGHT BLOOD GLUCOSE CONTROL KEEP OFF WOUNDS FREQUENT CHECKS FOR INCONTINENCE, HAD STOOL INCONTINENCE DURING ASSESSMENT LIMIT HOB <30 DEGREES UNLESS EATING.
[2019-01-30 16:49] VITALS: BP 116/53
[2019-01-30 19:40] VITALS: BP 114/49
--- NOTE | 2019-01-30 19:42 | NUR ---
ASSUMED PT CARE AT 0730. ASSESSMENT COMPLETED CHARTED. ABLE TO MAKE NEEDS KNOWN. ON BEDREST, [id number] COMPLETED CHARTED. NO C/O PAIN OR DISCOMFORT. INCONTINENT OF BOWEL AND BLADDER. RESTING IN BED AT THIS TIME. WILL CONTINUE TO MONITOR.
[2019-01-31] VITALS (7 sets, daily range): BP systolic 102–134; BP diastolic 47–66
[2019-01-31 05:11] LABS: HEMATOCRIT 34.4 % (37.0-47.0); MCH 31.6 pg (26.0-34.0); MCV 92.9 fL (80.0-100.0); MPV 7.9 fl. (7.2-11.1); RBC 3.7 mil/uL (4.20-5.00); RDW-CV 13.3 % (10.5-14.5); WBC 11.2 thou/uL (4.0-11.0)
[2019-01-31 05:16] LABS: HEMOGLOBIN 11.7 gm/dL (12.0-15.0)
[2019-01-31 05:30] LABS: CREATININE 0.6 mg/dL (0.6-1.3); POTASSIUM 3.8 mmol/L (3.5-5.1)
--- NOTE | 2019-01-31 07:42 | NUR ---
PT CARE ASSUMED AT 1930. SAT MAINTAINED IN RA. ALERT AND ORIENTED X4. CALL LIGHT WITHIN REACH AND BED IN LOW POSITION. DENIES PAIN AND SOB. HOURLY ROUNDING DONE FOR PT SAFETY.
--- NOTE | 2019-01-31 19:05 | NUR ---
assumed pt care at 0730, full assesment done as charted. pt a/o x4, anxious at times. drowsy this am, more alert this afternoon, up to chair, ambulates with assist and walker. pt calls appropriatly for help. pt on clear liquids this afternoon, npo after midnight. bowel prep started. pts vss, sr on the monitor. fall precautions in place. call light in reach. will continue to monitor.
[2019-02-01 04:00] VITALS: BP 123/56
[2019-02-01 08:00] VITALS: BP 146/69
--- NOTE | 2019-02-01 08:05 | NUR ---
PT CARE ASSUMED AT 1930. SAT MAINTAINED IN RA. ALERT AND ORIENTED X4. PT IS REALLY WEAK. PT KNEES STARTED BUCKLING UP WHILE TRANSFERING TO THE BEDSIDE COMMODE WITH THE GAITBELT IN PLACE, THIS NURSE PRESENT TO PREVENT COMPLETE FALL. PT TRANSFERRED TO BED WITH THE HELP OF OTHER STAFF MEMBERS. CALL LIGHT WITHIN REACH AND BED IN LOW POSITION. DENIES PAIN AND SOB. HOURLY ROUNDING DONE FOR PT SAFETY.
[2019-02-01 10:30] VITALS: BP 146/69
[2019-02-01 14:00] VITALS: BP 161/67
[2019-02-01 17:38] VITALS: BP 101/56
[2019-02-01 19:50] VITALS: BP 123/63
--- NOTE | 2019-02-01 20:01 | NUR ---
ASSUMED PT CARE AT 0730, FULL ASSESMENT DONE CHARTED. PT A/O X4, BOWEL PREP DONE LAST NIGHT/THIS AM FOR COLONOSCOPY, PT UNABLE TO DRINK IT ALL. 2 TAP WATER ENEMAS DONE THIS AM, PT DID NOT TOLERATE WELL. PT DENIES PAIN, IS WEAK, UP WITH 1 ASSIST/WALKER, USES CALL LIGHT APPROPRIALTY. CAN BE FUSSY AT TIMES AND APPEARS ANXIOUS AT TIMES. WAS ABLE TO EAT AFTER COLONOSCOPY, REGULAR DIET. PT HOPEFUL TO GO HOME SOON. REPORT GIVEN TO ONCOMING HAROLDO WISE.
[2019-02-01 23:06] LABS: GLYCOHEMOGLOBIN (HGB A1C) 8.7 % (4.8-5.6)
[2019-02-02] VITALS (7 sets, daily range): BP systolic 114–137; BP diastolic 60–69
--- NOTE | 2019-02-02 05:41 | NUR ---
PT CARE ASSUMED AT 1930. SAT MAINTAINED IN RA. ALERT AND ORIENTED X 4. CALL LIGHT WITHIN REACH AND BED IN LOW POSITION. DENIES PAIN AND SOB. HOURLY ROUNDING DONE FOR PT SAFETY.
--- NOTE | 2019-02-02 11:22 | NUR ---
ASSUMED CARE OF PT THIS AM AROUND 0715- NEWS DEPARTMENT INTERN IN PLACE ORDERED, TRACING SR- UPON ASSESSMENT PT NOTED TO BE RESTING IN BED SIDE RECLINER- PT A&O X4- INCONTINENT VS CONTINENT OF B/B- EXT ASSIST X1-2 WITH TRANSFERS, NOTED EXTREME WEAKNESS TO BLE- LCTA, RESP EVEN AND UN-LABORED- VSS, O2 SAT 98% ON RA- ABD SOFT/ROUND/NON-TENDER, BS X4 QUADS- LAST BM REPORTED 02/01/19- GOOD PO INTAKE NOTED THIS AM WITH BREAKFAST, BS MONITORED ORDERED WITH INSULIN PRESCIBED- PT NOTED TO HAVE OWN INSULIN PUMP FOR FAST ACTING INSULIN ADMINISTRATION PER SELF- IV NOTED TO LEFT AC INTACT, IV ABT GIVEN THIS AM PRESCIBED, IVF D/C'D THIS AM- +1 BLE EDEMA NOTED, LEG ELEVATION NOTED AT REST- BARRIOR CREAM TO GALI AREA AND OTILIO BREAST INDICATED- DRESSING NOTED INTACT TO SACRUM THIS AM- PT DENIES ANY C/O PAIN/DISCOMFORT AT THIS TIME- CALL LIGHT AND PERSONAL BELONGINGS WITH IN REACH- HOURLY ROUNDS IN PLACE R/T SAFETY/NEEDS- PT MAKES NEEDS KNOWN- ALL NEEDS MET AT THIS TIME-WCTM
[2019-02-02 12:05] LABS: ABSOLUTE EOSINOPHILS 0.2 thou/uL (0.0-0.7); ABSOLUTE MONOCYTES 0.6 thou/uL (0.0-1.2); ABSOLUTE NEUTROPHILS 6.3 thou/uL (1.6-8.1); BASOPHILS 0.5 %; EOSINOPHILS 1.8 %; HEMATOCRIT 41.9 % (37.0-47.0); LYMPHOCYTES 29.7 %; MCH 31.6 pg (26.0-34.0); MCHC 34.6 g/dL (28.0-37.0); MCV 91.3 fL (80.0-100.0); MONOCYTES 5.6 %; MPV 7.2 fl. (7.2-11.1); NUCLEATED RBCS 0 /100WBC; POLYS 62.4 %; RBC 4.59 mil/uL (4.20-5.00)
[2019-02-02 12:09] LABS: HEMOGLOBIN 14.5 gm/dL (12.0-15.0); PLATELET COUNT* 304 thou/uL (150-400)
[2019-02-02 12:31] LABS: ALBUMIN 2.6 g/dL (3.4-5.0); CALCIUM 8.7 mg/dL (8.5-10.1); CREATININE 0.7 mg/dL (0.6-1.3); POTASSIUM 3.2 mmol/L (3.5-5.1); TOTAL BILIRUBIN 0.3 mg/dL (<0.1-1.0); TOTAL PROTEIN 6.7 g/dL (6.4-8.2)
--- NOTE | 2019-02-02 16:53 | NUR ---
PT CURRENTLY RESTING IN BED SIDE RECLINER- CONFERENCE SERVICE COORDINATOR IN PLACE ORDERED, TRACING SR- IV NOTED TO LEFT AC INTACT AND SL- GOOD PO INTAKE NOTED THIS SHIFT WITH MEALS, BS MONITORED ORDERED WITH INSULIN PRESCIBED- - PT NOTED TO BE WORKING WITH THERAPIES THIS SHIFT PRESCIBED, TOLERATING WELL- RECOMMENDATIONS PER THERAPIES AND NURSING FOR INPT REHAB- JOSEE, WITH REHAB CONTACTED FOR FURTHER FOLLOW UP R/T CONSULTATION NOTED ON 01/30/19- D/C PENDING AUTHORIZATION AT THIS TIME- K+ NOTED AT 3.2 THIS SHIFT AND HAS BEEN REPLACED PER PROTOCOL WITH REDRAW TO FOLLOW- CALL LIGHT AND PERSONAL BELONGINGS WITH IN REACH- PT MAKES NEEDS KNOWN- ALL NEEDS MET AT THIS TIME-WCTM
[2019-02-03] VITALS: BP 147/69
[2019-02-03 05:00] VITALS: BP 116/60
--- NOTE | 2019-02-03 05:46 | NUR ---
PT CARE ASSUMED AT 1930. SAT MAINTAINED IN RA. ALERT AND ORIENTED X4. CALL LIGHT WITHIN REACH AND BED IN LOW POSITION. PT ABLE TO CALL OUT FOR BEDPAN THIS NIGHT. WAS NOT INCONTINENT. STILL HAS BLE WEAKNESS. DENIES PAIN AND SOB. HOURLY ROUNDING DONE FOR PT SAFETY.
[2019-02-03 08:30] VITALS: BP 122/59
[2019-02-03 12:00] VITALS: BP 102/52
--- NOTE | 2019-02-03 15:07 | PATH ---
[address] [address] PATHOLOGY RPT PROCEDURE Name: DAYDAY MORAN Room: [address] IN .R.#: [id number] Admission: 01/29/19 Date of : 59 Discharge: Report #: [id number] Path Case #: [id number] [facility] Accession Number: [id number] . 01 Material submitted: . rectum - RECTAL ULCER BIOPSY . 01 Clinical history: . None provided . 02 Diagnosis: Rectal ulcer biopsy: - Severe active colitis with nonspecific ulceration and scant acutely inflamed benign squamous epithelium, negative for granulomas, viral inclusions and dysplasia. See comment. (DARYL:georgina; 02/03/2019) S 02/03/2019 1342 Local . 02 Comment: A dominant polypoid fragment of inflamed colonic mucosa suggests hyperplastic changes. There is crypt distortion without significant basal lymphoplasmacytosis and the histologic features could be seen in inflammatory bowel disease. (DARYL:georgina; 02/03/2019) . 02 Electronically signed: . Dawit Gonzalez MD, Pathologist NPI- [id number] . 01 Gross description: . The specimen is received in formalin, labeled "Dayday Mora, rectal ulcer biopsy" and consists of 5 fragments of bustillo tissue measuring 0.8 x 0.5 x 0.2 cm in aggregate which are entirely submitted in A1. (SDY; 02/02/2019) SYU/SYU 02/02/2019 1507 Local . 02 Pathologist provided ICD-10: K52.9, K62.6 . 02 CPT . 556682 Specimen Comment: A courtesy copy of this report has been sent to [phone] Specimen Comment: [phone], Specimen Comment: Report sent to ,DR PABLO / DR FONTANEZ Performed at: [address] [place] [id number] [place] [address] PATHOLOGY RPT PROCEDURE Name: DAYDAY MORA SUNSHINE Room: [address] IN M.R.#: [id number] Admission: 01/29/19 Date of : 59 Discharge: Report #: [id number] Path Case #: [id number] MD Nacho Reyes MD Phone: [phone] Performed at: [address] [address] [address], [place], [place] [id number] MD Dawit Gonzalez MD Phone: [phone]
--- NOTE | 2019-02-03 16:52 | NUR ---
SW spoke with Nenita, rehabilitation specialist, about possibility for pt to admit to inpt rehab; insurance auth is pending.
[2019-02-03 17:21] VITALS: BP 138/78
--- NOTE | 2019-02-03 17:25 | EKG ---
[place] [address] ELECTROCARDIOGRAM REPORT Name: SYED HILLSTHIDelmar RICHARDSONN Room: [address] ADM IN M.R.#: [id number] Admission: 01/29/19 Attend Phys: Jan Wisdom MD Discharge: Date of : 59 Report #: [id number] THIS REPORT FOR: //name// [facility] Test Date: 2019-02-03 Test Time: 04:27:11 Pat Name: DAYDAY HILLS Department: Room: [address] Gender: F Weeder Thinner: : 1955 Requested By: Jenna Yoder Order Number: [id number] MD: Jey Kenny Measurements Intervals [place] Rate: 65 P: 39 MS: 168 QRS: -13 QRSD: 95 T: 51 QT: 398 QTc: 414 Interpretive Statements Sinus rhythm Compared to ECG 12/12/2018 08:05:36 T-wave abnormality no longer present Prolonged QT interval no longer present Electronically Signed On 02-03-2019 17:25:27 LINE LOCATOR by Jey Kenny [email or web address] <ELECTRONICALLY SIGNED> By: Jey Kenny MD, [facility] 02/03/19 1725 0427 0427 Jey Kenny MD, [facility] /EPI
--- NOTE | 2019-02-03 18:17 | NUR ---
ASSUSSMED CARE OF PT APPROX 0730. REASSESMENT COMPLETED CHARTED. MEDICATIONS GIVEN CHARTED. PT EDUCATED ABOUT MEDICATIONS BEING GIVEN, PT VERBALIZED UNDERSTANDING. PT HAS PERSONAL INSULIN PUMP AND ADMINISTERS INSULIN VIA PUMP ON THEIR OWN. THIS EVENING PT REQUESTED INSULIN BE AMINISTERED BY STAFF BECAUSE PERSONAL PUMP WAS EMPTY. PERSONAL ITEMS AND CALL LIGHT WITHIN REACH. SAFTEY PRECAUTIONS UTILIZED.
[2019-02-03 19:40] VITALS: BP 120/62
[2019-02-04 00:37] VITALS: BP 139/60
[2019-02-04 04:20] VITALS: BP 131/59
--- NOTE | 2019-02-04 05:44 | NUR ---
PT CARE ASSUMED AT 1930. SAT MAINTAINED IN RA. ALERT AND ORIENTED X4. CALL LIGHT WITHIN REACH AND ORIENTED X4. DENIES PAIN AND SOB. BLE WEAKNESS. HOURLY ROUNDING DONE FOR PT SAFETY.
[2019-02-04 08:30] VITALS: BP 91/51
--- NOTE | 2019-02-04 10:08 | NUR ---
WOUND CARE NOTE: REASESSMENT ULCERATIONS TO HER SACRUM HAVE HEALED. NEW PINK EPITHELIUM COVERING AREAS. EDUCATED PATIENT ON PROTECTING AREA BECAUSE IT WILL BE DELICATE. COMMUNICATED UNDERSTANDING. CANDIDIA RASH IS RESOLVING, PATIENT ADMITS THAT THE AREA IS FEELING MUCH BETTER. WILL SIGN OFF, PLEASE RECONSULT IF NEEDED. RECOMMEND APPLY BARRIER OINTMENT BID TO SACRAL AREA CONTINUE WITH ANTIFUNGAL BARRIER OINTMENT PRESCRIBED. TURN Q2 HOURS, EDUCATE PATIENT TO SHIFT WEIGHT WHEN IN CHAIR.
[2019-02-04 11:42] VITALS: BP 100/49
[2019-02-04] MEDS ORDERED: CIPRO250 M2 PO (12:36)
[2019-02-04] MEDS ORDERED: DIFLUCAN100 MG PO (12:41)
[2019-02-04] MEDS ORDERED: PAXIL20 MG PO (14:23)
[2019-02-04 15:20] VITALS: BP 137/68
--- NOTE | 2019-02-04 15:44 | NUR ---
mikhail parekr, received insur auth approval and pt will transfer to acute rehab today. cm faxed orders and med list to rehab.
[2019-02-04] MEDS ORDERED: ENOXAPARIN40 MG/0.1 SUBQ (17:06)
[2019-02-04] MEDS ORDERED: MIRALAX119 GM PO (17:17)
--- NOTE | 2019-02-17 15:15 | CON ---
[address] [address] CONSULTATION Name: [facility] Room: [address]#: [id number] Admission: 01/29/19 Attend Phys: Jan Wisdom MD Discharge: 02/04/19 Date of : 59 Report #: [id number] THIS REPORT FOR: //name// CC: Christoph Wisdom DATE OF SERVICE: 01/31/2019 HISTORY OF PRESENT ILLNESS: This is a pleasant 63-year-old female with past medical history significant for GBS, peripheral neuropathy and diabetes who was presenting with urinary retention and constipation. The GI service has been consulted for evaluation of constipation. The patient denies passing stool in the last 1 week. In the past, she has had diarrhea, but in the recent past, this has turned to constipation. She denies passing any blood in her stool, nausea, vomiting, weight loss or other alarm symptoms. The patient never had a colonoscopy before. PAST MEDICAL HISTORY: Significant for GBS, neuropathy, type 2 diabetes. PAST SURGICAL HISTORY: The patient had laminectomy in the past for spinal stenosis. SOCIAL HISTORY: The patient denies smoking, alcohol or recreational drug use. FAMILY HISTORY: No family history of colon cancer or [place] related neoplasia. REVIEW OF SYSTEMS: Negative except for what was mentioned in the HPI. PHYSICAL EXAMINATION: VITAL SIGNS: Temperature 36.9, pulse rate 68, blood pressure 105/50. GENERAL: The patient is alert, awake, oriented x 3. HEENT: Pupils equal, round, reactive to light and accommodation. Mucous membranes are moist. There is no congestion. LUNGS: Clear to auscultation bilaterally. CARDIOVASCULAR: Rate and rhythm regular, S1, S2 present. ABDOMEN: Soft. No significant distention, guarding or rigidity. No significant peripheral edema noted. LABORATORY DATA: Hemoglobin 11.7, hematocrit 34.4, platelet count 220, WBC count 11.2. Sodium 140, potassium 3.8, BUN 11, creatinine 0.6. Abdomen and pelvis CT performed on 01/29/2019, this demonstrates possible mild distal rectal colitis with mural thickening and possible perirectal inflammation. Mild small bowel and colonic fluid distention suggest paralytic, possible cystitis. ASSESSMENT AND PLAN: A pleasant 63-year-old female with history outlined above, presenting for evaluation of constipation. CT [place] [address] CONSULTATION Name: [facility] Room: [address]#: [id number] Admission: 01/29/19 Attend Phys: Jan Wisdom MD Discharge: 02/04/19 Date of : 59 Report #: [id number] proctitis and ileus. We will proceed with colonoscopy since the patient has never had a colonoscopy before. Further recommendations can be based on the results of colonoscopy. The patient was seen and examined on 01/31/2019. This note reflects that day of service. <ELECTRONICALLY SIGNED> By: Maxx Nguyen MD 02/17/19 1515 [id number] Nguyen MD /nt
== END 2019-02-04 18:00 | DRG 392 ==
LOC: M.ERS 19:47 → M.2W 21:36 → M.TBA-ER 21:36 → M.2W 22:38
PROVIDERS: Emergency Medicine; Family Medicine; Psychiatry & Neurology Neurology; ADMIT Internal Medicine
PROC: 0DBH8ZZ Excision of Cecum, Via Natural or Artificial Opening Endoscopic (ICD-10-PCS; principal; 2019-02-01)
PROC: 0DBP8ZX Excision of Rectum, Via Natural or Artificial Opening Endoscopic, Diagnostic (ICD-10-PCS; principal; 2019-02-01)
DX: K52.9 Noninfective gastroenteritis and colitis, unspecified (principal); N39.0 Urinary tract infection, site not specified; G61.0 Guillain-Barre syndrome; G61.81 Chronic inflammatory demyelinating polyneuritis; K56.7 Ileus, unspecified; B37.2 Candidiasis of skin and nail; E11.9 Type 2 diabetes mellitus without complications; K59.00 Constipation, unspecified; M79.7 Fibromyalgia; M48.061 Spinal stenosis, lumbar region without neurogenic claudication; E86.0 Dehydration; E87.6 Hypokalemia; B36.8 Other specified superficial mycoses; Z88.6 Allergy status to analgesic agent; Z79.899 Other long term (current) drug therapy

== ENCOUNTER 2019-02-04 16:01 | Inpatient (IN) | payer OTHER ==
[~2019-02-04] VITALS: Ht 154.9 cm; Wt 74.8 kg
[~2019-02-04 16:01] MED LIST changes: +CIPRO250 M2 PO; +DIFLUCAN100 MG PO; +MELATONIN5 MG SUBLING; +PAXIL20 MG PO; +VITAMIN D31000 UNIT PO
[2019-02-04] MEDS ORDERED: ENOXAPARIN40 MG/0.1 SUBQ (17:06)
[2019-02-04] MEDS ORDERED: MIRALAX119 GM PO (17:17)
[2019-02-04 20:00] VITALS: BP 124/68
[2019-02-05 03:56] LABS: HEMATOCRIT 36.4 % (37.0-47.0); MCHC 33.7 g/dL (28.0-37.0); MCV 91.9 fL (80.0-100.0); MPV 7.1 fl. (7.2-11.1); RBC 3.96 mil/uL (4.20-5.00); RDW-CV 13.2 % (10.5-14.5); WBC 13.8 thou/uL (4.0-11.0)
[2019-02-05 04:16] LABS: CALCIUM 8.9 mg/dL (8.5-10.1); CREATININE 0.6 mg/dL (0.6-1.3); POTASSIUM 3.8 mmol/L (3.5-5.1)
[2019-02-05 04:18] LABS: HEMOGLOBIN 12.3 gm/dL (12.0-15.0)
--- NOTE | 2019-02-05 05:32 | NUR ---
PT ARRIVED FROM TELE VIA W/C AT 1930. ALERT AND ORIENTED. PLEASANT BUT GETS EASILY ANXIOUS. DENIED ANY PAIN. HAS INSULIN PUMP AND SELF ADMINISTERS OWN INSULIN. MOD ASSIST WITH GAIT BELT AND WALKER. BLE WEAKNESS. UP TO BSC TO VOID. NEEDS LIFTING ASSIST OF LEGS INTO BED. DURING THE NIGHT, BLADDER SCANNING POST VOID X 3 SHOWED 200-400 CC RETAINED. PT INITIALLY REFUSED STRAIGHT CATH BUT THEN AGREED. AT 0145, STRAIGHT CATH WITH 300 CC OF CLEAR YELLOW URINE. DID HAVE 1 EPISODE OF URINARY INCONTINENCE WELL. HAS REDNESS TO GALI AREA/GROIN. ANTIFUNGAL CREAM APPLIED. SLEPT OFF AND ON. CALL LIGHT IN REACH AND BED ALARM ON.
[2019-02-05 09:28] VITALS: BP 100/50
--- NOTE | 2019-02-05 11:06 | NUR ---
SW met with pt to complete initial assessment, introduce self, and SW role on inpt rehab unit. Pt unavailable to discuss at the time as pt beginning OT session. Pt known to SW from previous hospitalization and hx with [facility] inpt rehab unit. Pt lives at home with her . Pt has ample DME available to her. Pt current with [facility] and has hx with OP therapy at [facility]. SW to continue to follow to assist with safe dc planning.
--- NOTE | 2019-02-05 12:14 | NUR ---
Nutrition: Pt admitted to rehab with CIDP. CHO controlled diet. Wt: 159#. Labs: BG 164, albumin 2.6, prealbumin 20. RD noticed 2 bottles of Ensure MAX on bedside table. Pt was in shower at time of visit. Will follow weekly fo rpo intake, wt trends, labs. Mild risk at this time.
--- NOTE | 2019-02-05 14:56 | NUR ---
PT HAS PARTICIPATED WITH THERAPIES. ORDERS FOR AFO SENT TO [facility]. PT TO HAVE BRING IN LINZESS MEDICATION FOR USE HERE. PT HAS VOIDED WELL TODAY ON COMMODE AND TOILET WITH BLADDER SCAN AT 25ML THIS AFTERNOON. PT DENIES PAIN. PT DOES TRANSFERR WITH USE OF WALKER,GAITBELT AND MOD ASSIST OF 1.PT ASSISTED TO COME TO STANDING AND IS WOBBLEY BUT ABLE TO TAKE FEW STEPS TO CHAIR OR COMMODE OVER TOILET.PT REMAINS ALERT AND ORIENTATED.
[2019-02-05 19:45] VITALS: BP 127/60
--- NOTE | 2019-02-05 23:10 | NUR ---
ASSUMED CARE AT 1930. PATIENT VISITING WITH FAMILY UNTIL AFTER 1999. VOIDED PER TOILET AT . WENT PER W/C WITH MAX ASSIST. NEEDS HELP WITH POSTERIOR CLEANSING AFTER BM. HAS HAD TWO SOFT BMS THUS FAR THIS SHIFT. BLADDER SCANNED AFTER VOIDING, 43 ML TOTAL. TURNS SELF. NEEDS HELP GETTING LEGS INTO BED. LATER USED BSC TO VOID/BM. DOES BETTER WITH WALKER THAN JUST USING GRAB BARS IN BATHROOM. TAKES PILLS WHOLE WITH WATER. PATIENT INFORMED THAT HE NEEDS TO BRING IN LINZESS FROM HOME. HOURLY ROUNDS CONTINUE. BED ALARM ON. CALL LITE IN REACH.
--- NOTE | 2019-02-06 05:23 | NUR ---
SLEPT BETWEEN VOIDS. HAD THREE BMS THIS SHIFT. DOES NOT SEEM TO KNOW WHEN SHE HAS HAD A BM. BMS HAVE BEEN VERY SOFT BUT FORMED. VOIDING FATIMAH URINE. SKIN CARE DONE, AF MOISTURE BARRIER APPLIED. NEEDS HELP GETTING LEGS BACK INTO BED. ABLE TO RISE FROM LYING TO SITTING POSITION WITH EXTRA TIME. HOURLY ROUNDS CONTINUE. BED ALARM ON. CALL LITE IN REACH.
[2019-02-06 08:30] VITALS: BP 126/61
--- NOTE | 2019-02-06 10:52 | NUR ---
PT HAS VOIDED 150ML WITH BLADDER SCAN OF 258ML
--- NOTE | 2019-02-06 16:20 | NUR ---
pt has participated with therapies and calls for assist with ambulation to bathroom with walker and mod assist of 1. pt denies pain. pt sits in recliner with feet elevated and repositions self.pt has been bladder scanned after voiding with less than 250ml results.pt has been continent of b+b with some urgency when needs to have bm.pt remains alert and orientated.
[2019-02-06 19:38] VITALS: BP 100/52
--- NOTE | 2019-02-07 00:34 | NUR ---
ASSUMED CARE @ 1924-02/06-SAT.AWAKE IN RECLINER WATCHING TV W/ . ASSISTED W/ BOTH LE'S INTO & OUT OF BED.LIFTING ASSIST TO STAND UP.TRANSFERS W/ WALKER.WANTS PULL UPS OFF @ HS.DONE.HEELS OFF BED @ 2099.NO VOID @ 2049 IN BSC.VOIDED 350 @ 2330 PER BSC.BLADDER SCAN @ 2340-259 ML.ON HOURLY ROUNDS. EDEMA-+1 PITTING-FEET.
--- NOTE | 2019-02-07 05:45 | NUR ---
SLEEPING SINCE 2199 & SLEPT GOOD ALL NIGHT.REFUSED HS SNACK.USED BSC X3. HAD SMEARING X1 ONLY @ 2049.GALI CARE DONE BY RN.AFTER VOID-PATIENT DOES OWN GALI CARE.REFUSED HS LOVENOX.VOIDED 2ND VOID @ 0445-275 ML.BLADDER SCAN @ 0450-204 ML.
--- NOTE | 2019-02-07 05:49 | NUR ---
NURSE'S NOTES ENTERED @ 7065-ARE END OF SHIFT PROGRESS NOTES.
[2019-02-07 08:00] VITALS: BP 91/54
--- NOTE | 2019-02-07 12:08 | NUR ---
ASSUMED CARE AT 0730. ALERT ORIENTED PLEASANT COOPERATIVE, HX OF CIDP PAST HX OF JONNY CALLAWAY. TRANSFERS WITH MOD ASSIST FROM W/C TO TOILET TO VOID AT 1015 VOIDED 150CCS YELLOW URINE BLADDER SCAN WAS 41CCS. DENIES PAIN OR CONCERNS. TAKES MEDS WITHOUT DIFFICULTY HAS INSULIN PATCH WHICH SHE USES TO CONTROL BLOOD SUGARS. FEEDS SELF APPETITE GOOD. PARTICIPATING IN THERAPIES THIS A.M. USES CALL LIGHT APPROPRIATELY FOR ASSISTANCE. PROPELLS SELF IN W/C ON UNIT. BLES HAVE EDEMA PRESENT.
--- NOTE | 2019-02-07 16:43 | NUR ---
PT. HAS VOIDED 125CC AT 1300 IN SPECIHAT. PVR 41CCS. HAS HAD SMALL BM. FUNGAL CREAM APPLIED AFTER OBTAINING FROM CS. VOIDED 100CCS AT 1500 PVR WAS 37CCS. AMBULATING TO BR WITH G BELT WALKER. SLOW GAIT.
--- NOTE | 2019-02-07 19:07 | NUR ---
PT. VOIDED 350CCS CLEAR YELLOW URINE AT 1600 IN SPECIHAT. UP IN RECLINER WITH VISITORS AT BEDSIDE.
[2019-02-07 21:00] VITALS: BP 142/58
--- NOTE | 2019-02-08 01:00 | NUR ---
ASSUMED CARE @ 1916-02/07-SAT.SITS IN RECLINER W/ LE'S UP VISITING W/ . MOD ASSIST W/ AMBULATION W/ GAIT BELT & WALKER.ASSIST LIFTING LE'S INTO & OUT OF BED.PULL UPS OFF @ .FUNGAL CREAM APPLIED TO PINK/RED PERINEAL AREAS @ 2009.HEELS OFF BED @ 2009.NURSE DOES GALI CARE AFTER BM BUT PATIENT DOES OWN GALI CARE AFTER VOIDING.VOIDED 525 ML @ 2300.BLADDER SCAN-208 ML.ON HOURLY ROUNDS.
--- NOTE | 2019-02-08 05:33 | NUR ---
SLEPT LATE @ 2300 & SLEPT GOOD ALL NIGHT.USED BSC X 3.2X-FOR VOIDING.ONCE FOR BM @ 1999.TOOK ALL RAINBOW SHERBET HS SNACK.BP ON DAYS-.BP @ 2099- 142/58.
[2019-02-08 08:00] VITALS: BP 128/62
--- NOTE | 2019-02-08 15:59 | NUR ---
ASSUMED CARE AT 0730. ALERT ORIENTED PLEASANT COOPERATIVE. HX OF CIDP AND DIABETIC. TRANSFERS WITH 1 ASSIST AND GAIT BELT WALKER AMBULATES TO BR TO VOID HAS VOIDED AT 0815 275CCS YELLOW URINE HAD A SMALL BM SOFT FORMED. VOIDED AT 1000 200CCS THEN 100CCS AT 1200 THEN AT 1540 100CCS URINE AND HAD A LARGE SOFT BM. HAS C/O OF BACK PAIN MEDICATED WITH TYLENOL WITH MIN RELIEF STATED. FEEDS SELF AND TAKES MEDS WITHOUT DIFFICULTY. HERE VISITING AND BROUGHT LUNCH WATCHING [place] ON TV. AMBULATED IN HALLS THIS AFTERNOON WITH NURSE AND TO DR AND BACK TO HER ROOM. SITTING IN RECLINER WITH FEET ELEVATED. USES CALL LIGHT APPROPRIATELY FOR ASSIST.
--- NOTE | 2019-02-08 18:54 | NUR ---
PT. VOIDED 200CCS YELLOW URINE AT 1840. SITTING IN RECLINER WITH BLES ELEVATED AT PRESENT.
[2019-02-08 19:20] VITALS: BP 119/58
--- NOTE | 2019-02-09 00:25 | NUR ---
ASSUMED CARE @ 1916-02/08-SATURDAY.SITS IN RECLINER W/ LE'S UP WATCHING TV. NEEDS ASSIST LIFTING LE'S INTO & OUT OF BED.WIPES SELF AFTER VOIDING.GALI CARE GIVEN @ 2034.PINK-PERINEAL AREAS.ANTI-FUNGAL CREAM APPLIED @ 2034 AFTER GALI CARE.HEELS OFF BED @ 2034.HOB UP.WANTS UNDERWEAR OFF @ .DID NOT WEAR PULL UPS.VOIDED 375 ML PER BSC @ 2250.BLADDER SCAN-233 ML.ON HOURLY ROUNDS.
--- NOTE | 2019-02-09 05:10 | NUR ---
SLEEPING SINCE 2100 & SLEPT GOOD ALL NIGHT.AWAKE X2 TO VOID PER BSC.USED BSC -FIRST TIME BEFORE HS @ 2030 BUT NO VOID & NO BM.VOIDED 350 ML @ 0300.BLADDER SCAN-333 ML.TOOK ALL KangouBET HS SNACK.
[2019-02-09 08:00] VITALS: BP 124/54
--- NOTE | 2019-02-09 15:51 | NUR ---
ASSUMED CARE AT 0730. ALERT ORIENTED PLEASANT COOPERATIVE. HX OF CIDP/GB. TRANSFERS WITH MOD ASSIST FROM SIT TO STAND AND AMBULATES WITH WALKER G BELT TO BR TO VOID AND HAD 2 BMS. ABLE TO DO HYGEINE AND CLOTHING ADJUSTMENTS. PARTICIPATING IN THERAPIES DENIES PAIN TODAY. USES CALL LIGHT APPROPRIATELY FOR ASSIST. SITTING IN RECLINER WHEN NOT IN THERAPIES. TAKES MEDS WITHOUT DIFFICULTY. VOIDING LESS FREQUENTLY TODAY.
--- NOTE | 2019-02-09 16:57 | NUR ---
PT. HAS VOIDED 250CCS AT 0745 VOIDED 200CCS AT 1000 AT 1330 VOIDED 200CCS AND AT 1645 200CCS VOID.
--- NOTE | 2019-02-09 18:44 | NUR ---
PT. SITTING UP IN RECLINER AT BEDSIDE AFTER SUPPER.
[2019-02-09 19:45] VITALS: BP 111/54
--- NOTE | 2019-02-09 23:07 | NUR ---
ASSUMED CARE AT 1930. PATIENT RESTING IN RECLINER UNTIL HS. UP WITH GAIT BELT, WALKER, MIN LIFTING ASSIST. DOES OWN GALI CARES. TAKES PILLS WHOLE WITH WATER. NO C/O PAIN. VOIDED PER TOILET AT HS, 300 ML. VOIDED AT 1100 PER BSC 500 ML LT YELLOW URINE. AF MOISTURE BARRIER APPLIED. LIES SUPINE WITH LEGS ELEVATED, REFUSES TO TURN DESPITE EDUCATION. HOURLY ROUNDS CONTINUE. BED ALARM ON. CALL LITE IN REACH.
[2019-02-10 04:37] LABS: HEMATOCRIT 37.3 % (37.0-47.0); HEMOGLOBIN 12.8 gm/dL (12.0-15.0); MCH 31.7 pg (26.0-34.0); MCHC 34.3 g/dL (28.0-37.0); MCV 92.2 fL (80.0-100.0); MPV 6.9 fl. (7.2-11.1); RBC 4.05 mil/uL (4.20-5.00); RDW-CV 13.5 % (10.5-14.5); WBC 14.2 thou/uL (4.0-11.0)
[2019-02-10 04:49] LABS: ALBUMIN 2.4 g/dL (3.4-5.0); CALCIUM 8.9 mg/dL (8.5-10.1); CREATININE 0.6 mg/dL (0.6-1.3); MAGNESIUM 1.7 mg/dL (1.8-2.4); POTASSIUM 3.8 mmol/L (3.5-5.1); TOTAL BILIRUBIN 0.2 mg/dL (<0.1-1.0); TOTAL PROTEIN 5.6 g/dL (6.4-8.2)
--- NOTE | 2019-02-10 06:32 | NUR ---
SLEPT MOST OF THE NIGHT EXCEPT TO GET UP TO VOID. VOIDS PER BSC, STAND PIVOT. UP WITH GAIT BELT, WALKER. DOES ALL CARES. NEEDS MINIMAL HELP GETTING LEGS INTO BED BUT IS IMPROVING. NO C/O PAIN. HOURLY ROUNDS CONTINUE. BED ALARM ON. CALL LITE IN REACH.
[2019-02-10 08:16] VITALS: BP 133/60
--- NOTE | 2019-02-10 16:02 | NUR ---
ASSUMMED CARE OF PT AT 0730, PT ALERT AND ORIENTED, PT TRANSFERS WITH MIN/MOD ASSIST, GB, WALKER, C/O PAIN IN ENTIRE BODY BUT DENIES NEED FOR ORAL PAIN MEDICATION, DISCUSSED WITH PHYSICIAN AND ORDERS OBTAINED FOR PAIN OINTMET THAT SHE IS WILLNG TO TRY TONIGHT. TAKING FOOD AND FLUIDS WELL, AMBULATES TO BATHROOM TO VOID, BM THIS SHIFT, SMALL SPOT OF BRIGHT RED BLOOD NOTED ON INCONTINENT PAD, AND A SMALL AMOUNT OF BLOOD NOTED ON TOILET TISSUE WHEN PT WIPED AFTER VOIDING. PT LABIA RED, OINTMENT APPLIED, NO FURTHER BLOOD NOTED, PT DENIES HEMMORHOIDS, PT INFORMED TO LET NURSE KNOW IF ANY FURTHER BLEEDING NOTED. [employer] RE-CALLED RE BILATERAL AFO, WILL SEE PT AT 1330 ON MONDAY 02/12. PT PARTICIPATED IN ALL THERAPIES, HOURLY ROUNDING COMPLETED, ASSESSMENT COMPLETE, WILL CONTINUE TO MONITOR.
[2019-02-10 19:00] VITALS: BP 152/64
--- NOTE | 2019-02-10 19:55 | NUR ---
SITTING UP IN RECLINER. DENIES DISCOMFORT. AMBULATED TO THE BATHROOM WITH SBA, GAITBELT, WALKER. DOES OWN GALI CARE AND CLOTHING ADJUSTMENTS. VOIDED 225ML OF DARK YELLOW URINE. PATIENT RUBBED SOME CAPSAICIN TOPICAL ANALGESIC ON HER KNEES. REQUIRED MODERATE ASSIST WITH GETTING BOTH LEGS INTO THE BED. CALL LIGHT WITHIN REACH.
--- NOTE | 2019-02-11 05:49 | NUR ---
PATIENT'S KNEES BECAME RED AND PATIENT COMPLAINED OF ITCHING. WASHED BOTH KNEES WITH SOAP AND WATER THINKING PERHAPS THE PATIENT HAD AN ALLERGIC REACTION TO THE TOPICAL ANALGESIC CREAM. NO FURTHER COMPLAINT OF ITCHING. REDNESS SUBSIDED. UP A TOTAL OF 3 TIMES TO THE BATHROOM TO VOID. HAD A BM AT BEDTIME AND AGAIN THIS MORNING. HOURLY ROUNDING IN PROGRESS.
[2019-02-11 07:30] VITALS: BP 119/54
--- NOTE | 2019-02-11 16:13 | NUR ---
SW and Dr Gould met with pt to review team conference summary and plan for reteam; pt in agreement with plan. SW discussed team considering beginning evaluation for motorized wheelchair; pt open to the idea. Pt barriers to dc at this point are overall coordination, decreased balance and decreased strength, pt apprehensive. ST reported no barriers and plan to sign off. SW to continue to follow to assist with safe dc planning.
--- NOTE | 2019-02-11 16:46 | NUR ---
PT IS ALERT AND ORIENTATED AND CALLS FOR ASSIST NEEDS. PT AMBULATES WITH WALKER AND MIN ASSIST TO BATHROOM IN ROOM. PT VOIDS 400-100 AMOUNTS CLEAR YELLOW URINE. PT HAVING SOME RETENTION WITH BLADDER SCANS 200-300'S.PT TO START ON FLOMAX PER AND CONSULT TO WITH PT HAVING MANY QUESTIONS.
[2019-02-11 19:20] VITALS: BP 95/48
--- NOTE | 2019-02-12 00:26 | NUR ---
ASSUMED CARE @ 1905-02/11-WED.SITS IN RECLINER WATCHING TV.AMBULATES TO BATHROOM W/ GAIT BELT & WALKER W/ MOD ASSIST.ABLE TO STAND FROM SITTING POSITION W/ SBA.BED ALARM PUT ON @ 2034.ASSIST W/ LE'S INTO & OUT OF BED. PUT ON YELLOW SOCKS WHILE SITTING EDGE OF BED @ 2034-USING SOCKS HELPER W/ MIN.ASSIST BY RN.VOIDED 100 ML @ 2029.BLADDER SCAN-32 ML ONLY.ANTI FUNGAL CREAM APPLIED TO PINK PERINEAL AREAS @ 2099 AFTER GALI CARE.HEELS OFF BED @ 2099.ON HOURLY ROUNDS.
[2019-02-12 01:05] VITALS: BP 118/54
--- NOTE | 2019-02-12 05:19 | NUR ---
SLEEPING SINCE 2200 & SLEPT GOOD ALL NIGHT.AWAKE ONCE @ 0100 FOR BRP #2. VOIDED 300 ML.TOOK ALL RAINBOW SHERBET HS SNACK.BP @ 1920-/48.BP RE-CHECKED @ /54.
--- NOTE | 2019-02-12 07:31 | NUR ---
VOIDED 3RD TIME @ 0715-400 ML.BLADDER SCAN-141 ML.
[2019-02-12 07:40] VITALS: BP 140/65
[2019-02-12 20:10] VITALS: BP 116/58
--- NOTE | 2019-02-13 00:48 | NUR ---
ASSUMED CARE @ 1919-02/12-.SITS IN RECLINER VISITING W/ & LADY RELATIVE.WANTS TO KEEP PULL UPS DURING NIGHT FOR PROTECTION FROM STOOLS.HAD BM'S X4 TODAY.ANTI-FUNGAL CREAM APPLIED TO PINK PERINEAL AREAS @ 2104 AFTER GALI CARE.VOIDED 500 ML @ 2300.BLADDER SCAN-159 ML.ON HOURLY ROUNDS.
--- NOTE | 2019-02-13 05:26 | NUR ---
SLEPT EARLY SINCE 2134 & SLEEPING GOOD ALL NIGHT.AWAKE ONLY 2X @ 2300 & 0400- FOR BRP W/ ASSIST TO VOID X2.FIRST BRP @ 2104-NO VOIDING BUT HAD SMALL BM. AT 0400-VOIDED 350 ML.BLADDER SCAN-214 ML.TOOK ALL Carbolytic MaterialsBET HS SNACK.
--- NOTE | 2019-02-13 07:37 | NUR ---
CALLED @ 0725 FOR C/O WEAKNESS & DIAPHORESIS.ACCUCHECK-55.ONLY DIAPHORETIC AROUND NECK & DRIED.TOOK ALL 120 ML APPLE JUICE & 2 PIECES RENU CRACKERS W/ PEANUT BUTTER.INFORM PATIENT,DONKEY RIDE OPERATOR & DAY RN TO RE-CHECK BLOOD SUGAR @ 0800.
[2019-02-13 08:07] VITALS: BP 121/58
[2019-02-13 09:00] VITALS: BP 121/58
--- NOTE | 2019-02-13 11:35 | NUR ---
JOSUE contacted [facility] [phone] to initiate evaluation of power wheelchair for pt due to PT and team recommendation of the DME need. JOSUE received guidelines for documentation and provided to Dr Gould to complete within Dr progress notes. SW to continue to follow to assist with safe dc planning.
--- NOTE | 2019-02-13 16:51 | NUR ---
ALERT AND ORIENTED X4. UP WITH 1 ASSIST GAIT BELT AND WALKER. BLADDER SCANNED AFTER VOIDING AND HAD OML. BLOOD SUGAR LOW THIS AM. PATIENT USING INSULIN PATCH AND OUR SLIDING SCALE. MESSAGE SENT TO DR REGARDING INSULIN DOSES AND BLOOD SUGARS. DENIED NEED FOR PAIN MEDICATION. CALL LIGHT WITHIN REACH. PATIENT CALLS OUT WHEN NEEDING ASSIST.
--- NOTE | 2019-02-13 18:14 | NUR ---
BLADDER SCAN AFTER VOIDING AT 1800 SHOWED 20ML OF URINE LEFT IN BLADDER.
[2019-02-13 20:25] VITALS: BP 138/61
--- NOTE | 2019-02-13 20:25 | NUR ---
PATIENT SIITING UP IN RECLINER. IN ROOM VISITING. BROUGHT PIZZA AND PATIENT HAS SNACKS ON BEDSIDE TABLE. DENIES DISCOMFORT. CALL LIGHT WITHIN REACH.
--- NOTE | 2019-02-14 05:35 | NUR ---
UP X ONE DURING THE NIGHT TO VOID. HAS VOIDED 700ML SO FAR THIS SHIFT. HOURLY ROUNDING IN PROGRESS.
[2019-02-14 08:30] VITALS: BP 114/60
--- NOTE | 2019-02-14 16:14 | NUR ---
PT HAS PARTICIPATED WITH THERAPIES AND CALLS FOR ASSIST NEEDED.PT AMBULATES WITH STANDBY TO MIN ASSIST WITH WALKER AND GAITBELT ON.PT DENIES PAIN. PT VOIDING WELL AND HAD LARGE FORMED BM IN TOILET.PT DENIES PAIN AND CALLS FOR ASSIST NEEDED
--- NOTE | 2019-02-14 20:00 | NUR ---
RESTING IN BED. IN GOOD SPIRITS - SMILING. JUST HAD A BM. DIDN'T WANT TO TAKE COLACE TONIGHT. DENIES DISCOMFORT. CALL LIGHT WITHIN REACH.
[2019-02-14 20:13] VITALS: BP 104/55
--- NOTE | 2019-02-15 05:24 | NUR ---
UP X ONE DURING THE NIGHT TO THE BATHROOM TO VOID. HOURLY ROUNDING IN PROGRESS.
[2019-02-15 07:35] VITALS: BP 135/67
--- NOTE | 2019-02-15 16:11 | NUR ---
PT CALLS FOR ASSIST NEEDS AND AMBULATES TO BATHROOM WITH MIN ASSIST OF 1 WITH GAITBELT AND WALKER. PT ABLE TO ADJUST CLOTHING AND CLEANSE SELF.PT VOIDS WELL AND HAS SMALL TO MED BM WITH VOIDINGS.PT REMAINS ALERT AND ORIENTATED.
[2019-02-15 20:15] VITALS: BP 116/57
--- NOTE | 2019-02-15 20:15 | NUR ---
SITTING UP IN RECLINER WATCHING TV. SMILING. DENIES DISCOMFORT. TRANSFERRED FROM CHAIR TO BED WITH CGA, GAITBELT, WALKER. TOOK 2 TRIES FOR PATIENT TO GET FROM SITTING TO STANDING, BUT NO LIFTING ASSIST WAS NEEDED. PATIENT DID NEED ASSIST WITH LIFTING BOTH LEGS INTO BED. SNACK PROVIDED. CALL LIGHT WITHIN REACH.
[2019-02-16 05:19] LABS: HEMATOCRIT 35.5 % (37.0-47.0); HEMOGLOBIN 12.2 gm/dL (12.0-15.0); MCH 31.7 pg (26.0-34.0); MCHC 34.4 g/dL (28.0-37.0); MCV 92.3 fL (80.0-100.0); MPV 7.5 fl. (7.2-11.1); RBC 3.85 mil/uL (4.20-5.00); RDW-CV 13.3 % (10.5-14.5); WBC 9.8 thou/uL (4.0-11.0)
[2019-02-16 05:24] LABS: CALCIUM 8.9 mg/dL (8.5-10.1); CREATININE 0.5 mg/dL (0.6-1.3); POTASSIUM 3.5 mmol/L (3.5-5.1)
--- NOTE | 2019-02-16 05:35 | NUR ---
UP X ONE DURING THE NIGHT TO THE BATHROOM TO VOID. HOURLY ROUNDING IN PROGRESS.
[2019-02-16 09:00] VITALS: BP 102/59
--- NOTE | 2019-02-16 15:58 | NUR ---
ALERT AND ORIENTED X4. UP WITH 1 ASSIST, GAIT BELT AND WALKER. DENIES NEED FOR PAIN MEDICATION WHEN OFFERED. CONTINENT OF BOWEL AND BLADDER. RECEIVING PT AND OT THERAPIES. GETTING SLIDING SCALE INSULIN, LANTUS INSULIN AND INSULIN PATCH TO HELP CONTROL BLOOD SUGARS. WILL CONTINUE TO MONITOR. USING CALL LIGHT THAT IS WITHIN REACH.
[2019-02-16 20:00] VITALS: BP 92/51
--- NOTE | 2019-02-17 05:15 | NUR ---
ASSUMED CARES AT 1920. ALERT AND ORIENTED. PLEASANT. DENIED ANY PAIN. MOD ASSIST WITH GAIT BELT AND WALKER. NEEDS HELP WITH LEGS INTO BED. NEEDS EXTRA TIME GETTING UP OUT OF CHAIR/BED. UP TO BATHROOM. DOES OWN CARES. UNABLE TO FALL ASLEEP AT FIRST. SLEPT MOST OF THE NIGHT. CALL LIGHT IN REACH AND BED ALARM ON.
[2019-02-17 07:20] VITALS: BP 121/58
--- NOTE | 2019-02-17 17:43 | NUR ---
PT REMAINED ALERT AND ORIENTED. PT RESTING IN ROOM. FALL RISK PRECAUTIONS IN PLACE. PT BLOOD SUGAR DROPPED, PB AND CRACKERS GIVEN WITH DINNER, WILL RECHECK BLOOD SUGAR. HOURLY ROUNDING COMPLETED. WILL CONTINUE TO MONITOR.
[2019-02-17 20:00] VITALS: BP 143/73
--- NOTE | 2019-02-18 06:08 | NUR ---
ASSUMED CARE AT 1920. ALERT AND ORIENTED PLEASANT. C/O BACK PAIN AND SO TYLENOL GIVEN. MOD ASSIST WITH GAIT BELT AND WALKER. NEEDS ASSIST WITH LEGS INTO BED. UP TO BATHROOM. DOES OWN CARES. SLEPT MOST OF THE NIGHT. CALL LIGHT IN REACH.
[2019-02-18 08:00] VITALS: BP 130/58
--- NOTE | 2019-02-18 15:57 | NUR ---
PT HAS PARTICIPATED WITH THERAPIES AND CALLS FOR ASSIST NEEDS. PT CONTINENT OF B+B,WITH CLEAR YELLOW URINE AND MOD STOOLS WHEN TOILETING.PRN FOR BACK PAIN GIVNE THIS AM WITH GOOD EFFECT. PT AMBULATES WITH AFO'S AND WALKER WITH MIN ASSIST.PT REMAINS ALERT AND ORIENTATED.
--- NOTE | 2019-02-18 17:13 | NUR ---
JOSUE and Dr Gould met with pt after team conference and pt was with OT at the time of rounding. SW met with pt later in the day and reviewed team conference summary and plan for reteam with dc next Sunday 02/25. Home with and HH and private duty care services possible a couple hours a day. SW provided resources/referrals for in home assistance and explained that is private pay. SW discussed pending power wc pending chart notes and SW to continue to follow to assist with safe dc planning.
[2019-02-18 20:10] VITALS: BP 108/54
--- NOTE | 2019-02-18 20:20 | NUR ---
SITTING UP IN RECLINER. DENIES DISCOMFORT. AMBULATED TO THE BATHROOM WITH SBA, GAITBELT, WALKER. DOES OWN CLOTHING ADJUSTMENTS AND GALI CARE. SNACK PROVIDED. CALL LIGHT WITHIN REACH.
--- NOTE | 2019-02-19 06:12 | NUR ---
UP X ONE DURING THE NIGHT TO THE BATHROOM TO VOID. NO COMPLAINTS VOICED. HOURLY ROUNDING IN PROGRESS.
[2019-02-19 07:56] VITALS: BP 111/59
--- NOTE | 2019-02-19 16:21 | NUR ---
PT HAS PARTICIPATED WITH THERAPIES AND CALLS FOR ASSIST NEEDED. PT CONTINENT OF B+B AND AMBULATES TO BATHROOM WITH WALKER AND MIN ASSIST OF 1. PT HAS AFO'S FOR BILAT LE'S. PT DENIES PAIN BUT DOES EXPRESS WANTING TO HAVE COUNSELING DUE TO "I'M NOT MYSELF AND MY SON DOSEN'T UNDERSTAND WHY I'M USEING A WALKER."PT IS ALERT AND ORIENTATED.
[2019-02-19 20:14] VITALS: BP 97/59
[2019-02-20 03:53] LABS: HEMATOCRIT 35.2 % (37.0-47.0); HEMOGLOBIN 12.1 gm/dL (12.0-15.0); MCH 31.4 pg (26.0-34.0); MCHC 34.2 g/dL (28.0-37.0); MCV 91.7 fL (80.0-100.0); MPV 7.4 fl. (7.2-11.1); RBC 3.84 mil/uL (4.20-5.00); RDW-CV 13.3 % (10.5-14.5); WBC 9.4 thou/uL (4.0-11.0)
[2019-02-20 04:05] LABS: ALBUMIN 2.5 g/dL (3.4-5.0); CREATININE 0.5 mg/dL (0.6-1.3); MAGNESIUM 1.7 mg/dL (1.8-2.4); POTASSIUM 3.6 mmol/L (3.5-5.1); TOTAL BILIRUBIN 0.2 mg/dL (<0.1-1.0); TOTAL PROTEIN 5.8 g/dL (6.4-8.2)
--- NOTE | 2019-02-20 05:28 | NUR ---
ASSUMED PT CARE AT 1930. PT ALERT AND ORIENTED X4, POLITE AND COOPERATIVE WITH CARES. PT UP TO BATHROOM WITH GAIT BELT, WALKER, AND ASSIST OF ONE. PT DENIES PAIN. NO STOOL THIS SHIFT. SLEPT WELL OVERNIGHT. CALL LIGHT AND FREQUENTLY USED ITEMS IN REACH. BED ALARM ON FOR SAFETY. HOURLY ROUNDING IN PROGRESS, WILL CONTINUE TO MONITOR.
[2019-02-20 08:24] VITALS: BP 94/61
--- NOTE | 2019-02-20 14:59 | NUR ---
ASSESSMENT COMPLETE. PT ALERT AND ORIENTED X4. PT HAD MULTIPLE EPISODES OF DIARRHEA THIS AFTERNOON, ONE LARGE INCONTINENT. PT IS ACCU CHECK ACHS. PT IS UP ONE ASSIST WITH WALKER AND GAIT BELT. PT IS WEAK AND UNSTEADY. DENIES PAIN. VSS. PT HAS NO OTHER CONCERNS AT THIS TIME. SEE ASSESSMENT AND VITALS FOR OTHER DETAILS. CALL LIGHT WITHIN REACH, WILL CONTINUE PLAN OF CARE
--- NOTE | 2019-02-20 16:20 | NUR ---
PT. UNABLE TO COMPLETE FULL 45 MIN THERAPY SESSION THIS AFTERNOON DUE TO UNCONTROLLED DIARRHEA DURING TIMES OF STRAINING TO COMPLETE TRANSFERS OR GAIT PTS. NURSE NOTIFIED
[2019-02-20 20:13] VITALS: BP 101/56
--- NOTE | 2019-02-20 23:31 | NUR ---
ASSUMED CARE AT 1930. PATIENT VISITING WITH FAMILY UNTIL HS. UP WITH ONE, GAIT BELT, WALKER, NEEDS EXTRA TIME. VOIDS PER BSC AT HS. DOES OWN GALI CARES INCLUDING APPLYING AF MOISTURE BARRIER. TAKES PILLS WHOLE WITH WATER. NO C/O PAIN. REFUSED HS SNACK. BLOOD SUGAR 119. REQUESTED TO ONLY TAKE 1/2 OF DOSE OF INSULIN, WHICH WOULD BE 3 UNITS. BLAKE HELD THIS PM DUE TO LOOSE STOOLS EARLIER TODAY. HOURLY ROUNDS CONTINUE. BED ALARM ON. CALL LITE IN REACH.
--- NOTE | 2019-02-21 06:15 | NUR ---
SLEPT MOST OF THE NIGHT. VOIDED ONCE PER BSC. NO C/O PAIN. HEELS ELEVATED ON PILLOWS. HOURLY ROUNDS CONTINUE. BED ALARM ON. CALL LITE IN REACH.
[2019-02-21 08:06] VITALS: BP 131/63
--- NOTE | 2019-02-21 16:26 | NUR ---
ASSUMMED CARE OF PT AT 0730, PT ALERT AND ORIENTED, PT TRANSFERS WITH SBA, GB WALKER, NEEDS LIFTING ASSIST TO GET FROM SITTING TO STANDING POSITION, PT DENIES PAIN, TAKING FOOD AND FLUIDS WELL, PT MANAGES OWN INSULIN PUMP, AND STAFF GIVES ADDITIONAL INSULIN ORDERED, AMBULATES TO BATHROOM TO VOID, OCCASIONAL STRESS INCONTINENCE, HAD LUNCH IN DININGROOM, PARTICIPATED IN ALL THERAPIES, HOURLY ROUNDING COMPLETED, ASSESSMENT COMPLETE, WILL CONTINUE TO MONITOR.
--- NOTE | 2019-02-21 16:43 | NUR ---
15 MINUTES OF 45 MINUTE TREATMENT ON 02/21/19 IS FOR MAKE-UP MINUTES FOR 02/20/19 IN THE AFTERNOON.
[2019-02-21 19:55] VITALS: BP 97/59
--- NOTE | 2019-02-22 05:36 | NUR ---
PT ALERT AND ORIENTED. VSS ON RA. ASSESSMENT DOCUMENTED. MED GIVEN PER EMAR. PT DENIES PAIN, N/V THIS SHIFT. PT SLEPT MOST OF SHIFT. FALL PRECAUTION IN PLACE. CALL LIGHT WITHIN REACH. HOURLY ROUNDINGS MADE. WILL CONTINUE TO MONITOR.
[2019-02-22 08:28] VITALS: BP 115/57
--- NOTE | 2019-02-22 16:50 | NUR ---
ASSUMMED CARE OF PT AT 0730, PT ALERT AND ORIENTED, PT TRANSFERS WITH ASSIST OF 1 GB WALKER, NEEDS LIFTING ASSIST TO STAND, TAKING FOOD AND FLUIDS WELL, AMBULATES TO BATHROOM TO VOID, DENIES PAIN, GALI AREA RED, PT APPLIES ANTIFUNGAL OINTMENT, HAS LEFT PULL UPS OFF AND STATES IT IS IMPROVING, PT UP IN CHAIR ALL SHIFT, REPOSTIONS FREQUENTLY FROM RECLINER TO WHEELCHAIR, HOURLY ROUNDING COMPLETED, ASSESSMENT COMPLETE, WILL CONTINUE TO MONITOR.
[2019-02-22 19:45] VITALS: BP 102/57
--- NOTE | 2019-02-22 22:28 | NUR ---
ASSUMED CARE AT 1930. PATIENT RESTING IN CHAIR UNTIL HS. UP WITH ONE, GAIT BELT, WALKER. NEEDS HELP GETTING LEGS INTO BED. DOES OWN PERICARE AFTER VOIDING AND APPLIES MOISTURE BARRIER. TAKES PILLS WHOLE. HAS M & M FOR HS SNACK. TOOK SLIDING SCALE PER NURSING, SEE MAR. NO C/O PAIN. HOURLY ROUNDS CONTINUE. BED ALARM ON. CALL LITE IN REACH.
[2019-02-23 05:31] LABS: HEMATOCRIT 37.6 % (37.0-47.0); HEMOGLOBIN 12.9 gm/dL (12.0-15.0); MCH 31.3 pg (26.0-34.0); MCHC 34.4 g/dL (28.0-37.0); MCV 90.9 fL (80.0-100.0); MPV 6.7 fl. (7.2-11.1); RBC 4.14 mil/uL (4.20-5.00); RDW-CV 13.2 % (10.5-14.5); WBC 9.2 thou/uL (4.0-11.0)
[2019-02-23 05:43] LABS: CALCIUM 8.2 mg/dL (8.5-10.1); CREATININE 0.5 mg/dL (0.6-1.3)
--- NOTE | 2019-02-23 05:59 | NUR ---
SLEPT MOST OF THE NIGHT EXCEPT TO VOID. NO C/O PAIN. TURNS SELF. HOURLY ROUNDS CONTINUE. BED ALARM ON. CALL LITE IN REACH.
[2019-02-23 08:22] VITALS: BP 129/65
[2019-02-23 08:30] VITALS: BP 129/65
--- NOTE | 2019-02-23 18:22 | NUR ---
ALERT AND ORIENTED X4. UP WITH STAND BY ASSIST, GAIT BELT AND WALKER. CONTINENT OF BOWEL AND BLADDER. CONTINUE TO MONITOR BLOOD SUGARS. PATIENT USING INSULIN PATCH ALONG WITH SLIDING SCALE INSULIN AND LANTUS. DENIES NEED FOR PAIN MEDICATION WHEN OFFERED. CALL LIGHT WITHIN REACH. USES CALL LIGHT WHEN NEEDING ASSIST. PROGRESSING TOWARD DISCHARGE GOAL.
[2019-02-23 20:00] VITALS: BP 123/72
--- NOTE | 2019-02-23 20:30 | NUR ---
SITTING UP IN RECLINER. 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 SMILING. DENIES DISCOMFORT. CALL LIGHT WITHIN REACH. USED STERILE PROCESSING TECHNICIAN TO REOMOVE HER SOCKS AND SOCK CHANGER TO PUT YELLOW GRIPPER SOCKS ON. TOOK 2 ATTEMPTS TO GET FROM SITTING TO STANDING BUT DID WITHOUT ANY ASSISTANCE. TRANSFERRED FROM CHAIR TO BED WITH SBA, GAITBELT, WALKER. SNACK PROVIDED.
--- NOTE | 2019-02-24 05:06 | NUR ---
RESTED QUIETLY. UP X ONE DURING THE NIGHT TO VOID. HOURLY ROUNDING IN PROGRESS.
[2019-02-24 08:30] VITALS: BP 114/58
--- NOTE | 2019-02-24 14:13 | NUR ---
SW met with pt to discuss reteam tomorrow with possible dc tomorrow after team conference. Pt had heard from nursing that dc might actually be Saturday but pt had expressed to several other team members that pt felt ready to dc tomorrow. SW clarified with pt and with nursing and therapy that plan will be to reteam tomorrow with dc likely tomorrow. Pt plans to complete car transfer today; pt taking off work early today. Pt wanted [place] . Pt working with private duty agencies to hire assist in the home as needed. SW to call [employer] to discuss power chair pending and if they can provide pt with a rental at dc. SW to continue to follow to assist with safe dc planning.
--- NOTE | 2019-02-24 16:08 | NUR ---
ALERT AND ORIENTED X4. UP WITH STAND BY ASSIST NEEDED, GAIT BELT AND WALKER. NO C/O PAIN. HAD SEVERAL SOFT BOWEL MOVEMENT TODAY. INCONTINENT OF BOWELS X1. CONTINENT OF URINE. CALL LIGHT WITHIN REACH. USES CALL LIGHT WHEN NEEDING ASSIST. PROGRESSING TOWARD DISCHARGE GOAL.
[2019-02-24 20:14] VITALS: BP 134/63
--- NOTE | 2019-02-24 20:25 | NUR ---
RESTING QUIETLY IN BED. DENIES DISCOMFORT. TOOK MEDICATIONS WHOLE WITH WATER. SNACK PROVIDED. CALL LIGHT WITHIN REACH.
--- NOTE | 2019-02-25 05:45 | NUR ---
RESTED QUIETLY. HOURLY ROUNDING IN PROGRESS.
[2019-02-25 08:35] VITALS: BP 123/62
[2019-02-25 13:39] VITALS: BP 123/62
--- NOTE | 2019-02-25 13:47 | NUR ---
Pt to dc home with today. Pt hired [employer] caregiver for shot blaster/personal care and for transportation as needed. Pt to follow up with [facility] per pt preference. SW Faxed referral and doctor's orders for OP therapy services PT and OT to [facility]; agency to call pt to schedule appts. Pt received loaner standard wc from [employer] who will continue to work with pt/therapies/doctor to finalize appropriate wc for pt use/mobility needs. Team conference held today and confirmed pt ready to dc home today; JOSUE and Dr Gould met with pt to review team conference summary and plan. Pt in agreement with plan and pt to provide pt ride home.
--- NOTE | 2019-02-25 15:18 | NUR ---
PT READY TO GO HOME WITH .DISCUSSED DISCHARGE INSTRUCTIONS WITH PT. PT REMAINS ALERT AND ORIENTATED. PT HAS NEW W/C WITH HER AND TRANSFERRED TO CAR WITH GOOD TECHNIQUE.
--- NOTE | 2019-03-05 15:15 | CON ---
[address] [address] CONSULTATION Name: [facility] Room: [address] IN M.R.#: [id number] Admission: 02/04/19 Attend Phys: Cristo Gould MD Discharge: 02/25/19 Date of : 59 Report #: [id number] THIS REPORT FOR: //name// CC: Cristo Gould DATE OF SERVICE: 02/21/2019 REASON FOR CONSULTATION: History of rectal ulcer. HISTORY OF PRESENT ILLNESS: This is a 63-year-old female, who is well known to us as she was hospitalized in late December and underwent colonoscopy by my partner Dr. Nguyen. At that time, the patient had a rectal ulcer and poor prep, and biopsies of the ulcer were obtained. These biopsies were significant for severe active colitis with nonspecific ulcerations. This was negative for granulomas or viral infection and dysplasia. The patient has been on bowel regimen and currently denies any significant symptoms. There was also a polyp in her colon, which was not removed at the time of colonoscopy. The patient denies any hematochezia, melena, or abdominal pain. PAST MEDICAL HISTORY: Significant for history of Guillain-Decatur, neuropathy, diabetes mellitus type 2, history of laminectomy and spinal stenosis, chronic constipation, urinary retention, and rectal ulcer. ALLERGIES: Please refer to MAR. MEDICATIONS: Please refer to MAR. 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 FAMILY HISTORY: Negative for gastrointestinal malignancy. PHYSICAL EXAMINATION: VITAL SIGNS: Reveals blood pressure of 131/63, respirations 16, pulse 89, and temperature 98.3. LUNGS: Clear. CARDIOVASCULAR: Regular. ABDOMEN: Soft, nontender, and nondistended. Bowel sounds are positive. ASSESSMENT AND PLAN: I will continue the patient's current regimen and we will perform a colonoscopy in mid March to remove the polyp [place] [address] CONSULTATION Name: [facility] Room: [address]#: [id number] Admission: 02/04/19 Attend Phys: Cristo Gould MD Discharge: 02/25/19 Date of : 59 Report #: [id number] rectal ulcer. The pathology results were discussed with the patient. The patient seemed to have good understanding of her diagnosis and plan. <ELECTRONICALLY SIGNED> By: Akosua Melara MD 03/05/19 1515 1212 Lui Melara MD /nt
== END 2019-02-25 15:24 | disposition home or self-care (01) | DRG 74 ==
LOC: M.REH 16:01
PROVIDERS: Family Medicine; Internal Medicine; ADMIT Physical Medicine & Rehabilitation
DX: G61.81 Chronic inflammatory demyelinating polyneuritis (principal); G61.0 Guillain-Barre syndrome; N39.0 Urinary tract infection, site not specified; E86.0 Dehydration; B36.8 Other specified superficial mycoses; M79.7 Fibromyalgia; R32 Unspecified urinary incontinence; K52.9 Noninfective gastroenteritis and colitis, unspecified; M48.061 Spinal stenosis, lumbar region without neurogenic claudication; E87.6 Hypokalemia; R94.31 Abnormal electrocardiogram [ECG] [EKG]; R33.9 Retention of urine, unspecified; E11.40 Type 2 diabetes mellitus with diabetic neuropathy, unspecified; K59.09 Other constipation; E11.65 Type 2 diabetes mellitus with hyperglycemia; F32.9 Major depressive disorder, single episode, unspecified; Z88.6 Allergy status to analgesic agent; Z91.041 Radiographic dye allergy status; Z88.8 Allergy status to other drugs, medicaments and biological substances